=== PATIENT | female | born 1935 | race Caucasian/White ===

== ENCOUNTER 2017-06-18 13:34 | Inpatient (IN) | payer MEDICARE, OTHER ==
[~2017-06-18] VITALS: Ht 144.8 cm; Wt 52.2 kg
[2017-06-18 13:41] VITALS: BP 129/59; PULSE 119; RESP 16; TEMP 97.5
--- NOTE | 2017-06-18 14:14 | PD ---
HPI Chief Complaint: Medical Clearance Time Seen by Provider: 14:09 Travel History International Travel<30 days: No Contact w/Intl Traveler<30days: No Traveled to known affect area: No History of Present Illness HPI 81-year-old female assisted care patient with history of diabetes, currently on Coumadin, presents to the ER today brought in by her son, apparently has had a few recent falls, and her son noted that she has been more lethargic and disoriented and less active the last few days. She has no specific complaints. Son has also noted that she has a left facial droop. He has brought her in for further evaluation. He also thinks that she has not been eating in the last few days as well. Modifying Factors: None Associated Signs & Symptoms: Altered mental status, facial droop, decreased by mouth intake Risk Factors: Elderly, recent falls, on Coumadin PFSH Past Medical History ?: Not Social History Alcohol Use: No Tobacco Use: No Substance Use: No Allergies-Medications (Allergen,Severity, Reaction): Coded Allergies: Penicillins (Verified Allergy, Unknown, 06/18/17) Review of Systems ROS Limitations: Altered Mental Status Physical Exam Narrative GENERAL: Well-developed elderly white female patient currently in mild distress. Lethargic. SKIN: Focused skin assessment warm/dry. HEAD: Atraumatic. Normocephalic. EYES: Right pupil equal and round. No scleral icterus. No injection or drainage. Left-sided glass eye. ENT: No nasal bleeding or discharge. Mucous membranes dry. NECK: Trachea midline. No JVD. CARDIOVASCULAR: Regular rate and rhythm. No murmur appreciated. RESPIRATORY: No accessory muscle use. Decreased throughout. Breath sounds equal bilaterally. GASTROINTESTINAL: Abdomen soft, mild diffuse upper abdominal tenderness without guarding or rebound, nondistended. Hepatic and splenic margins not palpable. MUSCULOSKELETAL: No obvious deformities. No clubbing. No cyanosis. No edema. NEUROLOGICAL: Lethargic. Notable for mild left facial droop. Generally weak. Normal speech. PSYCHIATRIC: Lethargic, disoriented; insight and judgment poor. Data Data Last Documented VS Vital Signs Date Time Temp Pulse Resp B/P (MAP) Pulse Ox O2 Delivery O2 Flow Rate FiO2 06/18/17 16:03 103 18 156/72 (100) 97 Room Air 06/18/17 13:41 97.5 Orders Orders Electrocardiogram (06/18/17 14:03) Complete Blood Count With Diff (06/18/17 14:03) Comprehensive Metabolic Panel (06/18/17 14:03) Beta Hydroxybutyrate (Acetone) (06/18/17 14:03) Urinalysis - C+S If Indicated (06/18/17 14:03) Blood Culture (06/18/17 14:03) Chest, Single Ap (06/18/17 14:03) Ecg Monitoring (06/18/17 14:03) Iv Access Insert/Monitor (06/18/17 14:03) Oximetry (06/18/17 14:03) NPO (06/18/17 14:03) Troponin I (06/18/17 14:03) Ct Brain W/O Iv Contrast(Rout) (06/18/17 14:03) Prothrombin Time / Inr (Pt) (06/18/17 14:10) Act Partial Throm Time (Ptt) (06/18/17 14:10) Ct Thorax/ Chest Wo Iv Contras (06/18/17 14:40) Ct Abd/Pel W/O Iv Contrast (06/18/17 15:54) Sodium Chlor 0.9% 1000 Ml Inj (Ns 1000 M (06/18/17 16:30) Insulin Human Regular Inj (Novolin R Inj (06/18/17 16:30) Cefepime Inj (Maxipime Inj) (06/18/17 16:16) Admit Order (Ed Use Only) (06/18/17 16:18) Bedside Glucose . DIRECTED (06/18/17 16:18) Blood Glucose Goal (Criteria) (06/18/17 16:18) Hypoglycemia 70 Mg/Dl Or < (06/18/17 16:18) Notify Dr: Other (06/18/17 16:18) Dextrose 50% In Vero (Vial) Inj (D50w (Vi (06/18/17 16:30) Glucagon Inj (Glucagon Inj) (06/18/17 16:30) Medium Novolog Scale (06/18/17 17:00) Admit To Inpatient (06/18/17 ) Vital Signs (Adult) Q4H (06/18/17 16:18) Activity Oob With Assistance (06/18/17 16:18) Sprinkler Inspector / Telemetry .CONTINUOUS (06/18/17 16:18) Intake + Output VÍCTOR.QSHIFT (06/18/17 16:18) Diet Npo (06/18/17 Dinner) Sodium Chlor 0.9% 1000 Ml Inj (Ns 1000 M (06/18/17 16:18) Sodium Chloride 0.9% Flush (Ns Flush) (06/18/17 16:30) Sodium Chloride 0.9% Flush (Ns Flush) (06/18/17 21:00) Ondansetron Inj (Zofran Inj) (06/18/17 16:30) Scd Bilateral/Knee High VÍCTOR.BID (06/18/17 16:18) Naloxone Inj (Narcan Inj) (06/18/17 16:30) Docusate Sodium-Senna ([place]ugenia-Colace) (06/18/17 21:00) Magnesium Hydroxide Liq (Milk Of Magnesi (06/18/17 16:30) Sennosides (Senokot) (06/18/17 16:30) Bisacodyl Supp (Dulcolax Supp) (06/18/17 16:30) Lactulose Liq (Lactulose Liq) (06/18/17 16:30) Inpatient Certification (06/18/17 ) Labs Laboratory Tests Test 06/18/17 14:10 06/18/17 14:40 White Blood Count 25.6 TH/MM3 Red Blood Count 4.67 MIL/MM3 Hemoglobin 14.3 GM/DL Hematocrit 44.1 % Mean Corpuscular Volume 94.6 FL Mean Corpuscular Hemoglobin 30.6 PG Mean Corpuscular Hemoglobin Concent 32.4 % Red Cell Distribution Width 14.5 % Platelet Count 97 TH/MM3 Mean Platelet Volume 9.5 FL Neutrophils (%) (Auto) 89.5 % Lymphocytes (%) (Auto) 3.3 % Monocytes (%) (Auto) 7.1 % Eosinophils (%) (Auto) 0.1 % Basophils (%) (Auto) 0.0 % Neutrophils # (Auto) 23.0 TH/MM3 Lymphocytes # (Auto) 0.9 TH/MM3 Monocytes # (Auto) 1.8 TH/MM3 Eosinophils # (Auto) 0.0 TH/MM3 Basophils # (Auto) 0.0 TH/MM3 CBC Comment AUTO DIFF Differential Total Cells Counted 100 Neutrophils % (Manual) 91 % Band Neutrophils % 3 % Lymphocytes % 1 % Monocytes % 3 % Neutrophils # (Manual) 24.6 TH/MM3 Metamyelocytes 1 % Myelocytes 1 % Nucleated Red Blood Cells 1 /100 WBC Differential Comment FINAL DIFF MANUAL Toxic Vacuolation PRESENT Platelet Estimate LOW Platelet Morphology Comment NORMAL Red Cell Morphology Comment NORMAL Blood Urea Nitrogen 50 MG/DL Creatinine 1.68 MG/DL Random Glucose 626 MG/DL Total Protein 7.0 GM/DL Albumin 3.3 GM/DL Calcium Level 12.4 MG/DL Alkaline Phosphatase 1088 U/L Aspartate Amino Transf (AST/SGOT) 176 U/L Alanine Aminotransferase (ALT/SGPT) 151 U/L Total Bilirubin 3.7 MG/DL Sodium Level 133 MEQ/L Potassium Level 4.8 MEQ/L Chloride Level 99 MEQ/L Carbon Dioxide Level 22.9 MEQ/L Anion Gap 11 MEQ/L Estimat Glomerular Filtration Rate 29 ML/MIN Protein Corrected Calcium 12.6 MG/DL Troponin I 0.03 NG/ML B-Hydroxybutyrate 1.00 MMOL/L Prothrombin Time 13.7 SEC Prothromb Time International Ratio 1.2 RATIO Activated Partial Thromboplast Time 22.4 SEC MDM Medical Decision Making Medical Screen Exam Complete: Yes Emergency Medical Condition: Yes Medical Record Reviewed: Yes Interpretation(s) EKG shows sinus tachycardia rate of 100 bpm. No signs of acute ST-T elevations or depressions. Laboratory Tests Test 06/18/17 14:10 06/18/17 14:40 White Blood Count 25.6 TH/MM3 (4.0-11.0) Platelet Count 97 TH/MM3 (150-450) Neutrophils (%) (Auto) 89.5 % (16.0-70.0) Lymphocytes (%) (Auto) 3.3 % (9.0-44.0) Neutrophils # (Auto) 23.0 TH/MM3 (1.8-7.7) Lymphocytes # (Auto) 0.9 TH/MM3 (1.0-4.8) Monocytes # (Auto) 1.8 TH/MM3 (0-0.9) Neutrophils % (Manual) 91 % (16-70) Lymphocytes % 1 % (9-44) Neutrophils # (Manual) 24.6 TH/MM3 (1.8-7.7) Myelocytes 1 % (0-0) Nucleated Red Blood Cells 1 /100 WBC (0-0) Toxic Vacuolation PRESENT (NONE SEEN) Platelet Estimate LOW (NORMAL) Blood Urea Nitrogen 50 MG/DL (7-18) Creatinine 1.68 MG/DL (0.50-1.00) Random Glucose 626 MG/DL (74-106) Albumin 3.3 GM/DL (3.4-5.0) Calcium Level 12.4 MG/DL (8.5-10.1) Alkaline Phosphatase 1088 U/L (45-117) Aspartate Amino Transf (AST/SGOT) 176 U/L (15-37) Alanine Aminotransferase (ALT/SGPT) 151 U/L (10-53) Total Bilirubin 3.7 MG/DL (0.2-1.0) Sodium Level 133 MEQ/L (136-145) Estimat Glomerular Filtration Rate 29 ML/MIN (>89) Protein Corrected Calcium 12.6 MG/DL (8.5-10.1) B-Hydroxybutyrate 1.00 MMOL/L (0.00-0.39) Prothrombin Time 13.7 SEC (9.8-11.6) Activated Partial Thromboplast Time 22.4 SEC (24.3-30.1) Last [address] 06/18/17 1403 Signed Impressions: Service Date/Time: Sunday, June 18, 2017 14:21 - CONCLUSION: 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 No evidence of hemorrhage or edema. No mass or mass effect. Jose Barry MD Chest X-Ray 06/18/17 1403 Signed Impressions: Service Date/Time: Sunday, June 18, 2017 14:19 - CONCLUSION: Soft tissue mass in the AP window and left hilum. Outpatient contrasted chest CT is recommended. Jose Barry MD Differential Diagnosis Altered mental status, left facial droop: ICH versus CVA versus metabolic issues versus dehydration versus sepsis Narrative Course CAT scan shows an old stroke but no signs of acute strokes. Her lab work shows significant BUN and creatinine elevation and calcium elevation, concerning for severe dehydration or acute renal failure. Her liver enzymes elevated from unknown reasons. Her chest x-ray shows a pulmonary mass which she needs further evaluation. CAT scans of the chest and abdomen were ordered, without contrast because patient's kidney functions are not good enough. At this point , considering her symptoms and findings, my plan would be to admit her for further treatment and evaluation. Case is discussed with Dr. Irby for admission. Diagnosis Primary Impression: Altered mental status Additional Impressions: Acute renal failure Elevated liver enzymes Admitting Information Admitting Physician Requests: Admit Sofia Coppola MD Jun 18, 2017 14:14
[2017-06-18 14:22] VITALS: O2SAT 95
--- NOTE | 2017-06-18 14:38 | RADRPT ---
EXAM DATE/TIME: 06/18/2017 14:19 [facility] COMPARISON: No previous studies available for comparison. INDICATIONS : Chest pain since this morning. MEDICAL HISTORY : None. SURGICAL HISTORY : None. ENCOUNTER: Initial ACUITY: 1 day PAIN SCORE: 7/10 LOCATION: Bilateral chest FINDINGS: A single view of the chest demonstrates definite soft tissue prominence in the left hilum. Adenopathy versus left hilar mass. Contrasted chest CT is recommended on an outpatient basis. Osseous structur es are intact. CONCLUSION: Soft tissue mass in the AP window and left hilum. Outpatient contrasted chest CT is recommended. Jose Barry MD on June 18, 2017 at 14:35 Board Certified Radiologist. This report was verified electronically.
--- NOTE | 2017-06-18 15:00 | RADRPT ---
EXAM DATE/TIME: 06/18/2017 14:21 [facility] COMPARISON: No previous studies available for comparison. INDICATIONS : Altered mental status,frequent falls,weakness.left facial droop. RADIATION DOSE: 56.77 CTDIvol (mGy) MEDICAL HISTORY : Deep venous thrombosis. Diabetes SURGICAL HISTORY : None. ENCOUNTER: Initial ACUITY: 1 day PAIN SCALE: 0/10 LOCATION: cranial TECHNIQUE: Multiple contiguous axial images were obtained of the head. Using automated exposure control and adj ustment of the mA and/or kV according to patient size, radiation dose was kept as low as reasonably a chievable to obtain optimal diagnostic quality images. DICOM format image data is available electro nically for review and comparison. FINDINGS: CEREBRUM: There is no lacunar infarct on the right with some areas of encephalomalacia in the high right fronta l region. The ventricles are normal for age. No evidence of midline shift, mass lesion, hemorrhage o r acute infarction. No extra-axial fluid collections are seen. POSTERIOR FOSSA: The cerebellum and brainstem are intact. The 4th ventricle is midline. The cerebellopontine angle i s unremarkable. EXTRACRANIAL: Calcified left globe. SKULL: The calvaria is intact. No evidence of skull fracture. 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 No evidence of hemorrhage or edema. No mass or mass effect. Jose Barry MD on June 18, 2017 at 14:57 Board Certified Radiologist. This report was verified electronically.
[2017-06-18 15:10] LABS: EOSINOPHIL % 0.1 % (0.0-4.0); HEMATOCRIT 44.1 % (35.0-46.0); LYMPH % 3.3 % (9.0-44.0); LYMPHOCYTE # 0.9 TH/MM3 (1.0-4.8); MEAN CELL VOLUME 94.6 FL (80.0-100.0); MEAN CORPUSCULAR HEMOGLOBIN 30.6 PG (27.0-34.0); MEAN CORPUSCULAR HGB CONC 32.4 % (32.0-36.0); MONO % 7.1 % (0.0-8.0); NEUT % 89.5 % (16.0-70.0); PLATELET COUNT 97 TH/MM3 (150-450); RED BLOOD COUNT 4.67 MIL/MM3 (4.00-5.30); RED CELL DISTRIBUTION WIDTH 14.5 % (11.6-17.2); WHITE BLOOD COUNT 25.6 TH/MM3 (4.0-11.0)
[2017-06-18 15:16] LABS: HEMO FLAGS AUTO DIFF
[2017-06-18 15:22] LABS: APTT (PATIENT) 22.4 SEC (24.3-30.1); INTERNATIONAL NORMALIZED RATIO 1.2 RATIO; PROTHROMBIN TIME - PATIENT 13.7 SEC (9.8-11.6)
[2017-06-18 15:41] LABS: BANDS 3 % (0-6); CORRECTED NUCLEATED RBC 1 /100 WBC (0-0); METAMYELOCYTES 1 % (0-1); MYELOCYTES 1 % (0-0); NEUTROPHIL # MANUAL DIFF 24.6 TH/MM3 (1.8-7.7); POLYS (SEG NEUTROPHILS) 91 % (16-70); WBC DIFF SAMPLE 100
[2017-06-18 15:42] LABS: SCAN/DIFF FINAL DIFF MANUAL
[2017-06-18 15:43] LABS: TOXIC VACUOLATION PRESENT (NONE SEEN)
[2017-06-18 15:44] LABS: BICARBONATE 22.9 MEQ/L (21.0-32.0); PLATELET ESTIMATE SMEAR LOW (NORMAL); PLATELET MORPHOLOGY NORMAL (NORMAL); TOTAL BILIRUBIN ADULT 3.7 MG/DL (0.2-1.0)
[2017-06-18 15:47] LABS: POTASSIUM 4.8 MEQ/L (3.5-5.1)
[2017-06-18 15:51] LABS: CALCIUM-PROTEIN CORRECTED 12.6 MG/DL (8.5-10.1)
[2017-06-18 16:03] VITALS: BP 156/72; PULSE 103; RESP 18; O2SAT 97
[2017-06-18] MEDS ORDERED: CEFEPIME INJ 2,000 MG in SODIUM CHLORIDE 0.9% INJ 100 ML IV STA (16:16)
[2017-06-18] MEDS ORDERED: ONDANSETRON HCL 4 MG/2 ML VIAL IVP PRN (16:30)
[2017-06-18] MEDS ORDERED: BISACODYL 10 MG SUPP RECTAL PRN (16:30)
[2017-06-18] MEDS ORDERED: GLUCAGON 1 MG/ML VIAL OTHER PRN (16:30)
[2017-06-18] MEDS ORDERED: SODIUM CHLOR 0.9% 1000 ML INJ 1,000 ML IV ONE (16:30)
[2017-06-18] MEDS ORDERED: SENNOSIDES 8.6 MG TAB PO PRN (16:30)
[2017-06-18] MEDS ORDERED: MAGNESIUM HYDROXIDE SUSP 30 ML CUP PO PRN (16:30)
[2017-06-18] MEDS ORDERED: DEXTROSE 50% IN WATER 50 ML VIAL(D50) IV PUSH PRN (16:30)
[2017-06-18] MEDS ORDERED: SODIUM CHLORIDE 0.9% FLUSH 10 ML FLUSH IV FLUSH PRN (16:30)
[2017-06-18] MEDS ORDERED: INSULIN HUMAN REGULAR 1,000 UNITS/10 ML VIAL IV PUSH ONE (16:30)
[2017-06-18] MEDS ORDERED: LACTULOSE SYRUP 20 GM/30 ML CUP PO PRN (16:30)
[2017-06-18] MEDS ORDERED: NALOXONE HCL 0.4 MG/ML AMP IV PUSH PRN (16:30)
[2017-06-18] MEDS: INSULIN ASPART SUPPLEMENTAL SCALE SQ SCH ×2 (17:00→21:00)
[2017-06-18] MEDS ORDERED: PILO2SOL3 RIGHT EYE (17:01)
[2017-06-18] MEDS ORDERED: METF500T PO (17:01)
[2017-06-18] MEDS ORDERED: COUM3TAB PO (17:01)
[2017-06-18] MEDS ORDERED: GLIP10TA6 PO (17:01)
[2017-06-18] MEDS ORDERED: DORZ2SOL7 RIGHT EYE (17:01)
[2017-06-18] MEDS ORDERED: BENZ1CAP51 PO (17:01)
[2017-06-18] MEDS ORDERED: ALPH0.1S RIGHT EYE (17:01)
[2017-06-18] MEDS ORDERED: SIMV20TA PO (17:01)
[2017-06-18] MEDS ORDERED: SYSTSOL EACH EYE (17:01)
[2017-06-18] MEDS ORDERED: AMLO10TA2 PO (17:01)
--- NOTE | 2017-06-18 17:26 | RADRPT ---
EXAM DATE/TIME: 06/18/2017 16:26 [facility] COMPARISON: No previous studies available for comparison. INDICATIONS : Right hilum mass seen on chest x-ray. ORAL CONTRAST: No oral contrast ingested. RADIATION DOSE: 5.87 CTDIvol (mGy) ; Combined studies - Thorax/Abdomen/Pelvis MEDICAL HISTORY : None SURGICAL HISTORY : None. ENCOUNTER: Initial ACUITY: 1 day PAIN SCALE: Non-responsive LOCATION: Abdomen TECHNIQUE: Volumetric scanning of the abdomen and pelvis was performed. Using automated exposure control and adjustment of the mA and/or kV according to patient size, radiation dose was kept as low as reasonably achievable to obtain optimal diagnostic quality images. DICOM format image data is av ailable electronically for review and comparison. FINDINGS: Noncontrast CT scan of the abdomen and pelvis demonstrates there is a large mass in the dome of the bladder. It is transitional cell carcinoma until proven otherwise. That would account for the metastatic disease to the chest. The liver is very inhomogeneous I suspect with widespread metastatic disease. There is atrophy of the pancreas. The kidneys are unremarkable. Spleen and adrenal glands are both u nremarkable. Clips suggest cholecystectomy. CONCLUSION: Very inhomogeneous liver with what appears to be multiple masses on this unenhanced s tudy. I suspect it is widespread metastatic disease. Marked bladder wall thickening of the dome lik nisa transitional cell carcinoma. Jose Barry MD on June 18, 2017 at 17:07 Board Certified Radiologist. This report was verified electronically.
--- NOTE | 2017-06-18 17:32 | RADRPT ---
EXAM DATE/TIME: 06/18/2017 16:26 [facility] COMPARISON: No previous studies available for comparison. INDICATIONS : Chest mass. RADIATION DOSE: 5.87 CTDIvol (mGy) ; Combined studies - Thorax/Abdomen/Pelvis MEDICAL HISTORY : None SURGICAL HISTORY : None. ENCOUNTER: Initial ACUITY: 1 day PAIN SCALE: Non-responsive LOCATION: Chest TECHNIQUE: Volumetric scanning of the chest was performed. Using automated exposure control and adjustment of t he mA and/or kV according to patient size, radiation dose was kept as low as reasonably achievable to obtain optimal diagnostic quality images. DICOM format image data is available electronically for r eview and comparison. Follow-up recommendations for detected pulmonary nodules are based at a minimum on nodule size and pa tient risk factors according to Fleischner Society Guidelines. FINDINGS: Noncontrast chest CT was performed. The patient has a very enlarged left pulmonary artery which neela esponds with the chest x-ray abnormality. I suspect the patient has pulmonary valve stenosis with un ilateral enlargement of the left pulmonary artery. The right pulmonary artery is normal. The patient does have a number of pulmonary nodules scattered throughout the lungs. There is an 8 mm pulmonary nodule in the left upper lobe. There is a 1 cm pulmonary nodule in the right middle lobe. There are at least four subcentimeter pulmonary nodules in the left lung base. It is very concernin g for metastatic disease. There is no axillary adenopathy. Bone windows show no lytic or blastic lesions. There are dense pericardial calcifications. CONCLUSION: 1. 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 2. Numerous small pulmonary nodules scattered throughout the lungs likely metastatic disease. The no dule in the right middle lobe does abut the visceral pleura and would be amenable to CT-guided biopsy if needed. Jose Barry MD on June 18, 2017 at 17:06 Board Certified Radiologist. This report was verified electronically.
[2017-06-18] MEDS: SODIUM CHLOR 0.9% 1000 ML INJ 1,000 ML IV SCH (18:19)
--- NOTE | 2017-06-18 18:36 | HHI.HP ---
[facility] Primary Care Physician Todd Daniels MD Admission Diagnosis altered mental status/acute renal failure/hypercalcemia/elevated LFT Diagnoses: Chief Complaint: Altered mental status Travel History International Travel<30 Days: No Contact w/Intl Traveler <30 Da: No Traveled to Known Affected Are: No History of Present Illness This is an 81-year-old female with past medical history of type 2 diabetes, hx right-sided stroke, hypertension, hyperlipidemia, hearing loss and on chronic anticoagulation who presented with confusion. Majority of the history taken from her son who is at the bedside. Patient is AAO 2. She is able to tell me her name and location. She is also able to answer questions appropriately. Patient stated that she does not know why she is here. She has no complaints at all. Denied any pain. Per patient's son the last few weeks patient has been falling. Per patient she stated that she is tripping over things. Today when patient son called her around lunchtime she was very confused so he brought her to the emergency department. He noticed that she was becoming intermittently confused the past couple days but it was severe today. Otherwise he stated besides the fall she has been behaving normally. He did admit that patient felt nauseated or had upset stomach about 2 weeks ago that resolved. Patient denies any urinary symptoms. Patient lives at home independently. All other review of system reviewed and negative. Past Family Social History Past Medical History Type 2 diabetes Glaucoma Hypertension History right CVA Hyperlipidemia Difficulty hearing Past Surgical History Patient denies any past surgical history. Her son is unsure if she has any past surgical history. Reported Medications Coumadin (Warfarin) 3 Mg Tab 3 Mg PO DAILY Amlodipine (Amlodipine Besylate) 10 Mg Tab 10 Mg PO DAILY Benzonatate 200 Mg Cap 200 Mg PO TID PRN Pilocarpine Opth 2% (Pilocarpine HCl) 2 % Soln 1 Drop RIGHT EYE Q6HR Metformin (Metformin HCl) 500 Mg Tab 500 Mg PO BIDPC Simvastatin 20 Mg Tab 20 Mg PO DAILY Glipizide 10 Mg Tab 10 Mg PO BIDAC Take 30 minutes before a meal Cosopt Opth Drops (Dorzolamide-Timolol Opth Drops) 22.3-6.8 Mg/Ml Soln 1 Drop RIGHT EYE BID Alphagan P Opth Drops (Brimonidine Tartrate) 0.1% Soln 1 Drop RIGHT EYE Q8HR Systane Opth Drops (Polyethylene Glycol-Propylene Glycol Opth Drp) 0.4-0.3% Soln 1-2 Drop EACH EYE PRN PRN Allergies: Coded Allergies: Penicillins (Verified Allergy, Unknown, 06/18/17) Active Ordered Medications Current Medications Sodium Chloride 1,000 ml @ 999 mls/hr BOLUS ONCE IV Last administered on 16:53; Start 06/18/17 at 16:30; Stop 06/18/17 at 17:27; Status DC Insulin Human Regular (NovoLIN R INJ) 6 units ONCE ONCE IV PUSH Last administered on 06/18/17 16:53; Start 06/18/17 at 16:30; Stop 06/18/17 at 16 :31; Status DC Cefepime HCl 2000 mg/Sodium Chloride 100 ml @ 200 mls/hr ONCE STAT IV Last administered on 06/18/17 16:52; Start 06/18/17 at 16:16; Stop 06/18/17 at 16 :45; Status DC Dextrose (D50w (Vial) Inj) 50 ml UNSCH PRN IV PUSH HYPOGLYCEMIA-SEE COMMENTS; Start 06/18/17 at 16:30 Glucagon (Glucagon Inj) 1 mg UNSCH PRN OTHER HYPOGLYCEMIA-SEE COMMENTS; Start 06/18/17 at 16:30 Insulin Aspart (NovoLOG SUPPLEMENTAL SCALE) 1 ACHS SLIDING SCALE SQ ; Start at 17:00 Sodium Chloride 1,000 ml @ 100 mls/hr Q10H IV ; Start 06/18/17 at 16:18 Sodium Chloride (NS Flush) 2 ml UNSCH PRN IV FLUSH FLUSH AFTER USING IV ACCESS ; Start 06/18/17 at 16:30 Sodium Chloride (NS Flush) 2 ml BID IV FLUSH ; Start 06/18/17 at 21:00 Ondansetron HCl (Zofran Inj) 4 mg Q6H PRN IVP NAUSEA OR VOMITING; Start at 16:30 Naloxone HCl (Narcan Inj) 0.4 mg UNSCH PRN IV PUSH SEE LABEL COMMENTS; Start 06/18/17 at 16:30 Senna/Docusate Sodium (Eugenia-Colace) 1 tab BID PO ; Start 06/18/17 at 21:00 Magnesium Hydroxide (Milk Of Magnesia Liq) 30 ml Q12H PRN PO Mild constipation ; Start 06/18/17 at 16:30 Sennosides (Senokot) 17.2 mg Q12H PRN PO Moderate constipation; Start at 16:30 Bisacodyl (Dulcolax Supp) 10 mg DAILY PRN RECTAL SEVERE CONSITIPATION; Start 06/18/17 at 16:30 Lactulose (Lactulose Liq) 30 ml DAILY PRN PO SEVERE CONSITIPATION; Start 06/18 at 16:30 Ceftriaxone Sodium 1000 mg/ Sodium Chloride 100 ml @ 200 mls/hr Q24H IV ; Start 06/19/17 at 12:00 Amlodipine Besylate (Norvasc) 10 mg DAILY PO ; Start 06/19/17 at 09:00; Status UNV Dorzolamide/ Timolol (Cosopt 2-0.5% Opth Soln) 1 drop BID RIGHT EYE ; Start at 21:00; Status UNV Pilocarpine HCl (Pilocar 2% Opth Soln) 1 drop Q6HR RIGHT EYE ; Start 06/19/17 at 00:00; Status UNV Non-Formulary Medication 1 drop Q8HR RIGHT EYE ; Start 06/18/17 at 22:00; Status UNV Family History Patient denies any past family history. Son is unsure of any past family history. Social History Patient was at home by herself. She denied any alcohol, tobacco, illicit drug use. Physical Exam Vital Signs Vital Signs Date Time Temp Pulse Resp B/P (MAP) Pulse Ox O2 Delivery O2 Flow Rate FiO2 06/18/17 16:03 103 18 156/72 (100) 97 Room Air 06/18/17 14:22 95 Room Air 06/18/17 13:41 97.5 119 16 129/59 (82) Physical Exam GENERAL: This is a very thin female in no acute distress. SKIN: No rashes, ecchymoses or lesions. Cool and dry. HEAD: Atraumatic. Normocephalic. No temporal or scalp tenderness. EYES: Pupils equal round and reactive. Extraocular motions intact. No scleral icterus. No injection or drainage. ENT: Nose without bleeding, purulent drainage or septal hematoma. Throat without erythema, tonsillar hypertrophy or exudate. Uvula midline. Airway patent. NECK: Trachea midline. No JVD or lymphadenopathy. Supple, nontender, no meningeal signs. CARDIOVASCULAR: Regular rate and rhythm without murmurs, gallops, or rubs. RESPIRATORY: Clear to auscultation. Breath sounds equal bilaterally. No wheezes , rales, or rhonchi. GASTROINTESTINAL: Abdomen soft, non-tender, nondistended. No hepato-splenomegaly , or palpable masses. No guarding. MUSCULOSKELETAL: Extremities without clubbing, cyanosis, or edema. No joint tenderness, effusion, or edema noted. No calf tenderness. Negative Homans sign bilaterally. NEUROLOGICAL: Awake and alert. Slight left facial droop that's normal for her. Motor and sensory grossly within normal limits. Speech is intact. Laboratory Laboratory Tests Test 06/18/17 14:10 06/18/17 14:40 White Blood Count 25.6 Red Blood Count 4.67 Hemoglobin 14.3 Hematocrit 44.1 Mean Corpuscular Volume 94.6 Mean Corpuscular Hemoglobin 30.6 Mean Corpuscular Hemoglobin Concent 32.4 Red Cell Distribution Width 14.5 Platelet Count 97 Mean Platelet Volume 9.5 Neutrophils (%) (Auto) 89.5 Lymphocytes (%) (Auto) 3.3 Monocytes (%) (Auto) 7.1 Eosinophils (%) (Auto) 0.1 Basophils (%) (Auto) 0.0 Neutrophils # (Auto) 23.0 Lymphocytes # (Auto) 0.9 Monocytes # (Auto) 1.8 Eosinophils # (Auto) 0.0 Basophils # (Auto) 0.0 CBC Comment AUTO DIFF Differential Total Cells Counted 100 Neutrophils % (Manual) 91 Band Neutrophils % 3 Lymphocytes % 1 Monocytes % 3 Neutrophils # (Manual) 24.6 Metamyelocytes 1 Myelocytes 1 Nucleated Red Blood Cells 1 Differential Comment FINAL DIFF MANUAL Toxic Vacuolation PRESENT Platelet Estimate LOW Platelet Morphology Comment NORMAL Red Cell Morphology Comment NORMAL Blood Urea Nitrogen 50 Creatinine 1.68 Random Glucose 626 Total Protein 7.0 Albumin 3.3 Calcium Level 12.4 Alkaline Phosphatase 1088 Aspartate Amino Transf (AST/SGOT) 176 Alanine Aminotransferase (ALT/SGPT) 151 Total Bilirubin 3.7 Sodium Level 133 Potassium Level 4.8 Chloride Level 99 Carbon Dioxide Level 22.9 Anion Gap 11 Estimat Glomerular Filtration Rate 29 Protein Corrected Calcium 12.6 Troponin I 0.03 B-Hydroxybutyrate 1.00 Prothrombin Time 13.7 Prothromb Time International Ratio 1.2 Activated Partial Thromboplast Time 22.4 Date/Time Source Procedure Growth Status 06/18/17 14:10 Blood Peripheral Aerobic Blood Culture Pending Received 06/18/17 14:10 Blood Peripheral Anaerobic Blood Culture Pending Received Result Diagram: 06/18/17 1410 06/18/17 1410 Imaging Last Impressions Abdomen/Pelvis CT 06/18/17 1554 Signed Impressions: Service Date/Time: Sunday, June 18, 2017 16:26 - CONCLUSION: Very inhomogeneous liver with what appears to be multiple masses on this unenhanced study. I suspect it is widespread metastatic disease. 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 Jose Barry MD Chest CT 06/18/17 1440 Signed Impressions: Service Date/Time: Sunday, June 18, 2017 16:26 - CONCLUSION: 1. 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 2. Numerous small pulmonary nodules scattered throughout the lungs likely metastatic disease. The nodule in the right middle lobe does abut the visceral pleura and would be amenable to CT-guided biopsy if needed. Jose Barry MD Head CT 06/18/17 1403 Signed Impressions: Service Date/Time: Sunday, June 18, 2017 14:21 - CONCLUSION: 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 No evidence of hemorrhage or edema. No mass or mass effect. Jose Barry MD Chest X-Ray 06/18/17 1403 Signed Impressions: Service Date/Time: Sunday, June 18, 2017 14:19 - CONCLUSION: Soft tissue mass in the AP window and left hilum. Outpatient contrasted chest CT is recommended. MD Beulah Marie VTE Risk Assessment Caprini VTE Risk Assessment: Mod/High Risk (score >= 2) Caprini Risk Assessment Model Point Value = 1 Point Value = 2 Point Value = 3 Point Value = 5 Age 41-60 Minor surgery BMI > 25 kg/m2 Swollen legs Varicose veins or History of unexplained or recurrent spontaneous Oral contraceptives or hormone replacement Sepsis (< 1 month) Serious lung disease, including pneumonia (< 1 month) Abnormal pulmonary function Acute myocardial infarction Congestive heart failure (< 1 month) History of inflammatory bowel disease Medical patient at bed rest Age 61-74 Arthroscopic surgery Major open surgery (> 45 min) Laparoscopic surgery (> 45 min) Malignancy Confined to bed (> 72 hours) Immobilizing plaster cast Central venous access Age >= 75 History of VTE Family history of VTE Factor V Leiden Prothrombin [id number] Lupus anticoagulant Anticardiolipin antibodies Elevated serum homocysteine Heparin-induced thrombocytopenia Other congenital or acquired thrombophilia Stroke (< 1 month) Elective arthroplasty Hip, pelvis, or leg fracture Acute spinal cord injury (< 1 month) Prophylaxis Regimen Total Risk Factor Score Risk Level Prophylaxis Regimen 0-1 Low Early ambulation 2 Moderate Order ONE of the following: *Sequential Compression Device (SCD) *Heparin 5000 units SQ BID 3-4 Higher Order ONE of the following medications: *Heparin 5000 units SQ TID *Enoxaparin/Lovenox 40 mg SQ daily (WT < 150 kg, CrCl > 30 mL/min) *Enoxaparin/Lovenox 30 mg SQ daily (WT < 150 kg, CrCl > 10-29 mL/min) *Enoxaparin/Lovenox 30 mg SQ BID (WT < 150 kg, CrCl > 30 mL/min) AND/OR *Sequential Compression Device (SCD) 5 or more Highest Order ONE of the following medications: *Heparin 5000 units SQ TID (Preferred with Epidurals) *Enoxaparin/Lovenox 40 mg SQ daily (WT < 150 kg, CrCl > 30 mL/min) *Enoxaparin/Lovenox 30 mg SQ daily (WT < 150 kg, CrCl > 10-29 mL/min) *Enoxaparin/Lovenox 30 mg SQ BID (WT < 150 kg, CrCl > 30 mL/min) AND *Sequential Compression Device (SCD) Assessment and Plan Assessment and Plan 81-year-old female who became in with confusion Metabolic encephalopathy -Labs review significant for hypoglycemia, renal insufficiency, hypercalcemia, leukocytosis. Most likely may be due to combination of dehydration. -CT scan the brain shows an old right infarct. -Will treat underlying problem. Seems to be improving at the moment. Continue to monitor clinically. Sepsis vs SIRS -Elevated white count at 25,000 and tachycardia. Source may be secondary to UTI. -Will obtain UA. Chest x-ray showed pulmonary mass. -Blood cultures already obtained in the ED. Will get a lactic acid. -Patient was given cefepime in the ED. Will start Rocephin pending infectious workup. -Start IV fluids. -Continue to monitor clinically. Multiple pulmonary and liver nodules -Found on CT scan. Also bladder wall thickening was suggest transitional cell carcinoma. -Per CT scan there is a pulmonary and nodule that is amenable to CT percutaneous guided biopsy. Will get recommendations from oncologist. Hypercalcemia -Calcium is at 12.6 corrected. -Most likely secondary to metastatic disease. -Will start patient on IV fluids. Continue to monitor. Elevated liver enzymes and alkaline phosphatase -CT scan suggest metastatic liver disease. -Most likely secondary to metastatic liver disease. Sees treatment as above. -Continue monitoring trend. Acute renal sufficiency -There is no baseline for comparison. BUN is elevated at 50 with a creatinine 1.6. With elevated BUN suggest possible dehydration. -Treat with IV fluids. -Strict ins and outs. -Avoid nephrotoxins. Continue to trend creatinine. HHS -Patient blood sugar elevated 600. No anion gap. She is in renal failure and is dehydrated. -Will treat aggressively with IV fluids and place patient on insulin sliding scale. -Hold metformin and glipizide. -Will monitor labs and adjust insulin accordingly. Chronic anticoagulation -Patient son is unsure why she is on Coumadin. Will need to hold for possible lung biopsy. -INR is 1.2. She is not therapeutic. Most likely patient was noncompliant. Hypertension -Resume home medication. Hyperlipidemia -Since LFTs elevated will hold statin. History CVA -Patient is not on aspirin. She was most likely on Coumadin due to history CVA but unsure. DVT prophylaxis -Heparin renally dose. Code Status full code Discussed Condition With patient, nurse, her son, her daughter in law Physician Certification 2 Midnight Certification Type: Admission for Inpatient Services Order for Inpatient Services The services are ordered in accordance with Medicare regulations or non- Medicare payer requirements, as applicable. In the case of services not specified as inpatient-only, they are appropriately provided as inpatient services in accordance with the 2-midnight benchmark. Estimated LOS (days): 5 5 days is the estimated time the patient will need to remain in the hospital, assuming treatment plan goals are met and no additional complications. Post-Hospital Plan: Deisy Adrian MD Jun 18, 2017 18:36
[2017-06-18 20:11] VITALS: PULSE 92
[2017-06-18 20:30] VITALS: BP 161/70; PULSE 102; RESP 17; TEMP 97.5; O2SAT 98
[2017-06-18] MEDS: INSULIN DETEMIR 100 UNITS/ML VIAL SQ SCH (21:00)
[2017-06-18] MEDS: SODIUM CHLORIDE 0.9% FLUSH 10 ML FLUSH IV FLUSH SCH (21:00)
[2017-06-18] MEDS ORDERED: BRIMONIDINE OPTH RIGHT EYE SCH (22:00)
[2017-06-18] MEDS: DOCUSATE SODIUM 50 MG/SENNA 8.6 MG TAB PO SCH (22:56)
[2017-06-18] MEDS: HEPARIN SODIUM - SQ 10,000 UNITS/ML VIAL SQ SCH (22:57)
[2017-06-19] VITALS (9 sets, daily range): BP systolic 140–185; BP diastolic 62–96; PULSE 80–106; RESP 17–20; TEMP 97.1–98.2; O2SAT 94–98
[2017-06-19] MEDS ORDERED: methylPREDNISolone SOD SUCC 40 MG/1 ML VIAL IV PUSH ONE (02:30)
[2017-06-19] MEDS ORDERED: CALCITONIN SALMON INJ 400 UNITS/2 ML VIAL IM ONE (02:30)
[2017-06-19] MEDS: DORZOLAMIDE/TIMOLOL OPTH SOLN 10 ML BTL RIGHT EYE SCH ×3 (04:36→20:21)
[2017-06-19] MEDS: PILOCARPINE HCL 2% OPHT SOLN 15 ML BTL RIGHT EYE SCH ×5 (04:36→23:21)
[2017-06-19] MEDS ORDERED: cloNIDine HCL 0.1 MG TAB PO ONE (04:45)
[2017-06-19 05:11] LABS: BACTERIA, URINE RARE /hpf; BLOOD, URINE MOD (NEG); COMMENT (UR) CATH-CULTURE IND; CULTURE IF INDICATED CATH CULTURE IND; GLUCOSE,URINE 150 mg/dL (NEG); HYALINE CAST, URINE 2 /lpf (RARE); KETONE, URINE NEG (NEG); MUCUS URINE FEW /lpf (OCC); NITRITE,URINE NEG (NEG); SQUAMOUS EPITHELIAL CELL URINE 8 /hpf (0-5); URINE COLOR YELLOW (YELLW/STRAW)
[2017-06-19] MEDS: SODIUM CHLOR 0.9% 1000 ML INJ 1,000 ML IV SCH ×3 (05:35→22:18)
[2017-06-19 07:03] LABS: MEAN CELL VOLUME 93.1 FL (80.0-100.0); MEAN CORPUSCULAR HEMOGLOBIN 30.9 PG (27.0-34.0); MEAN CORPUSCULAR HGB CONC 33.2 % (32.0-36.0); PLATELET COUNT 63 TH/MM3 (150-450); RED BLOOD COUNT 4.29 MIL/MM3 (4.00-5.30); RED CELL DISTRIBUTION WIDTH 14.4 % (11.6-17.2); WHITE BLOOD COUNT 24.5 TH/MM3 (4.0-11.0)
--- NOTE | 2017-06-19 07:06 | MB ---
cc: MICHAEL HILLS DATE OF CONSULTATION 06/18/2017 REASON FOR CONSULTATION Patient with metastatic lesions to the lung and abdomen. HISTORY OF PRESENT ILLNESS This is an 81-year-old female who has a past medical history of diabetes type 2, history of stroke, hypertension, hyperlipidemia, hearing loss who presents to the emergency department with acute episode of confusion. Her son is present during this evaluation. He states that the patient lives by herself. He went to see the patient around lunch time and she was found to be extremely confused and was not answering questions appropriately. He states that over the past week, the patient has been falling and has not been her usual self. He states that prior to that, the patient was functioning independently. The patient currently is quite confused. She is awake, but she does not respond to my questions and is giving inappropriate answers. The patient appears to be quite cachectic, frail and ill-appearing. REVIEW OF SYSTEMS A comprehensive 14-point review of systems was completed which is negative except as described in the HPI. PAST MEDICAL HISTORY 1. Type 2 diabetes 2. Glaucoma 3. Hypertension 4. History of right-sided CVA. 5. Hyperlipidemia 6. Hearing loss PAST SURGICAL HISTORY No surgical history. MEDICATIONS 1. Coumadin 3 mg p.o. daily 2. Amlodipine 10 mg p.o. daily 3. Tessalon Perles 200 mg p.o. t.i.d. p.r.n. 4. Pilocarpine right eye q6 5. Metformin 500 mg one tablet p.o. b.i.d. 6. Simvastatin 20 mg p.o. daily 7. Glipizide 10 mg p.o. b.i.d. ALLERGIES She is allergic to PENICILLIN. FAMILY HISTORY Reviewed and is noncontributory to this admission. SOCIAL HISTORY She lives by herself according to son. She does not smoke cigarettes and does not drink alcohol. History of illicit drug use. PHYSICAL EXAMINATION VITAL SIGNS: Blood pressure is 156/72, pulse is in the 100's, temperature is 97.5, O2 sats are 97% on room air. GENERAL: An ill-appearing, cachectic, frail elderly female who is confused and is not answering questions appropriately. HEENT: Pupils are equal, round, reactive to light. EOMI. No oral thrush. No oral lesions. NECK: Supple. No JVD, no bruits. No lymphadenopathy. CHEST: Clear to auscultation bilaterally. CARDIAC: S1-S2 regular rate and rhythm. ABDOMEN: Soft, nontender, nondistended. Bowel sounds are present. EXTREMITIES: Without any edema, erythema or cyanosis. SKIN: Without any petechiae, lesion or bruises. NEUROLOGIC: No focal deficits. PSYCHIATRIC: Mood and affect is appropriate. LABORATORY DATA WBC 25.6, hemoglobin is 14.3. Her platelet count 97,000. Sodium is 133, potassium 4.8, chloride 99, CO2 is 22.9, anion gap is 11, BUN is 50, creatinine is 1.68, GFR is 29, lactic acid is elevated to 5.3, calcium is 12.4, corrected calcium is 12.6, total bilirubin is 3.7, AST is 176, ALT 151, alk phos is 1088, troponins are normal. Albumin is 3.3. Coags PT 13.7, INR 1.2, PTT 22.4. IMAGING STUDIES CT of the abdomen and pelvis was reviewed. There are multiple liver masses in the liver consistent with metastatic disease. There is also marked bladder wall thickening of the dome. This is highly suspicious for malignancy. CT of the chest was also reviewed. There are numerous small pulmonary nodules scattered throughout the lung which are likely metastatic. The nodule in the right middle lobe appears to be unable to CT-guided biopsy. ASSESSMENT/PLAN This is an 81-year-old female with a past medical history of stroke, hypertension, and diabetes who was brought to the emergency room with altered mental status. She was found to be hypercalcemic and has multiple liver masses as well as lung masses. 1. Liver lesions and lung lesions are highly suspicious for metastatic cancer. There is also thickening of the dome of the bladder which is suspicious for Malignancy as well. This appears to be diffusely metastatic disease. I had a long discussion with the patient's son. She is quite weak and frail. I discussed the goals of care with the son. He wants to pursue full treatment at this time. He stated that he would like to know what type of malignancy this is and wants to pursue a biopsy. After review of imaging, I believe that we can obtain a CT-guided biopsy of the lung mass. We can pursue this once the patient is more stable. She has quite poor performance status and had a history of stroke. If this is a confirmed malignancy, the treatment options are limited due to the fact that she has a very poor performance status. I would recommend asking palliative care to discuss goals of care with the family again. 2. Hypercalcemia of malignancy. Her calcium is elevated at 12.4. I would recommend IV hydration. We will give her calcitonin and steroids. 3. Acute renal failure likely due to volume contraction and hypocalcemia. 4. Altered mental status due to hypercalcemia and possibly underlying infection. 5. Lactic acidosis. 6. History of stroke and debilitated state. Thank you for allowing me to participate in the care of this patient. I will continue to follow this patient along. MD NAT Trejo/KITTY /2:17 AM /6:53 AM MTDD
[2017-06-19 07:12] LABS: REVIEW FLAG FINAL
[2017-06-19 07:25] LABS: INDIRECT BILIRUBIN 0.8 MG/DL (0.0-0.8); POTASSIUM 3.7 MEQ/L (3.5-5.1); TOTAL BILIRUBIN ADULT 4.2 MG/DL (0.2-1.0)
[2017-06-19] MEDS: INSULIN ASPART SUPPLEMENTAL SCALE SQ SCH ×4 (08:00→20:25)
--- NOTE | 2017-06-19 08:08 | HHI.PR ---
Subjective Remarks Still confused. Doesn't follow much commands. Doesn't answer appropriately questions. No fever or chills. No n/v. Had a BM. Objective Vitals Vital Signs Date Time Temp Pulse Resp B/P (MAP) Pulse Ox O2 Delivery O2 Flow Rate FiO2 06/19/17 06:45 146/78 (100) 06/19/17 05:31 97.3 106 17 185/77 (113) 97 06/19/17 00:30 98.2 106 17 184/79 (114) 97 06/18/17 20:30 97.5 102 17 161/70 (100) 98 06/18/17 20:11 92 06/18/17 16:03 103 18 156/72 (100) 97 Room Air 06/18/17 14:22 95 Room Air 06/18/17 13:41 97.5 119 16 129/59 (82) I/O 06/18/17 06/18/17 06/18/17 06/19/17 06/19/17 06/19/17 07:00 15:00 23:00 07:00 15:00 23:00 Intake Total 906 ml 805 ml Balance 906 ml 805 ml Intake Oral 300 ml 120 ml IV Total 606 ml 685 ml # Voids 2 2 Result Diagram: 06/19/17 0603 06/19/17 0603 Imaging Last Impressions Abdomen/Pelvis CT 06/18/17 1554 Signed Impressions: Service Date/Time: Sunday, June 18, 2017 16:26 - CONCLUSION: Very inhomogeneous liver with what appears to be multiple masses on this unenhanced study. I suspect it is widespread metastatic disease. 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 Jose Barry MD Chest CT 06/18/17 1440 Signed Impressions: Service Date/Time: Sunday, June 18, 2017 16:26 - CONCLUSION: 1. 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 2. Numerous small pulmonary nodules scattered throughout the lungs likely metastatic disease. The nodule in the right middle lobe does abut the visceral pleura and would be amenable to CT-guided biopsy if needed. Jose Barry MD Head CT 06/18/17 1403 Signed Impressions: Service Date/Time: Sunday, June 18, 2017 14:21 - CONCLUSION: 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 No evidence of hemorrhage or edema. No mass or mass effect. Jose Barry MD Chest X-Ray 06/18/17 1403 Signed Impressions: Service Date/Time: Sunday, June 18, 2017 14:19 - CONCLUSION: Soft tissue mass in the AP window and left hilum. Outpatient contrasted chest CT is recommended. Jose Barry MD Objective Remarks GENERAL: This is a very thin female in no acute distress. SKIN: No rashes, ecchymoses or lesions. Cool and dry. HEAD: Atraumatic. Normocephalic. No temporal or scalp tenderness. EYES: Pupils equal round and reactive. Extraocular motions intact. No scleral icterus. No injection or drainage. ENT: Nose without bleeding, purulent drainage or septal hematoma. Throat without erythema, tonsillar hypertrophy or exudate. Uvula midline. Airway patent. NECK: Trachea midline. No JVD or lymphadenopathy. Supple, nontender, no meningeal signs. CARDIOVASCULAR: Regular rate and rhythm without murmurs, gallops, or rubs. RESPIRATORY: Clear to auscultation. Breath sounds equal bilaterally. No wheezes , rales, or rhonchi. GASTROINTESTINAL: Abdomen soft, non-tender, nondistended. No hepato-splenomegaly , or palpable masses. No guarding. MUSCULOSKELETAL: Extremities without clubbing, cyanosis, or edema. No joint tenderness, effusion, or edema noted. No calf tenderness. Negative Homans sign bilaterally. NEUROLOGICAL: Awake and alert. Slight left facial droop that's normal for her. Motor and sensory grossly within normal limits. Speech is intact. A/P Assessment and Plan 81-year-old female who became in with confusion Metabolic encephalopathy -Labs review significant for hypoglycemia, renal insufficiency, hypercalcemia, leukocytosis. Most likely may be due to combination of dehydration and poss decreased PO intake. -CT scan the brain shows an old right infarct. -Will treat underlying problem. Seems to be improving at the moment. Continue to monitor clinically. -Consult tangled yarn worker , calorie count Sepsis vs SIRS -Elevated white count at 25,000 and tachycardia. Source may be secondary to UTI. -Will obtain UA. Chest x-ray showed pulmonary mass. -Blood cultures already obtained in the ED. Will get a lactic acid. -Patient was given cefepime in the ED. Will start Rocephin pending infectious workup. -Start IV fluids. -Continue to monitor clinically. Multiple pulmonary and liver nodules -Found on CT scan. Also bladder wall thickening was suggest transitional cell carcinoma. -Per CT scan there is a pulmonary and nodule that is amenable to CT percutaneous guided biopsy. Will get recommendations from oncologist. Hypercalcemia -Calcium is at 12.6 corrected. -Most likely secondary to metastatic disease. -Will start patient on IV fluids. Continue to monitor. Elevated liver enzymes and alkaline phosphatase -CT scan suggest metastatic liver disease. -Most likely secondary to metastatic liver disease. Sees treatment as above. -Continue monitoring trend. Acute renal sufficiency -There is no baseline for comparison. BUN is elevated at 50 with a creatinine 1.6. With elevated BUN suggest possible dehydration. -Treat with IV fluids. -Strict ins and outs. -Avoid nephrotoxins. Continue to trend creatinine. HHS -Patient blood sugar elevated 600. No anion gap. She is in renal failure and is dehydrated. -Will treat aggressively with IV fluids and place patient on insulin sliding scale. -Hold metformin and glipizide. -Will monitor labs and adjust insulin accordingly. Chronic anticoagulation -Patient son is unsure why she is on Coumadin. Will need to hold for possible lung biopsy. -INR is 1.2. She is not therapeutic. Most likely patient was noncompliant. Hypertension -Resume home medication. Hyperlipidemia -Since LFTs elevated will hold statin. History CVA -Patient is not on aspirin. She was most likely on Coumadin due to history CVA but unsure. DVT prophylaxis -Heparin renally dose. Code Status full code Discussed Condition With patient, nurse DC plan: pending improvement Sheela Silvestre MD Jun 19, 2017 08:08
[2017-06-19] MEDS: SODIUM CHLORIDE 0.9% FLUSH 10 ML FLUSH IV FLUSH SCH ×2 (09:00→20:21)
--- NOTE | 2017-06-19 10:41 | EKG ---
Date Performed: 06/18/2017 Time Performed: 14:51:18 PTAGE: 81 years EKG: SINUS TACHYCARDIA POSSIBLE LEFT ATRIAL ENLARGEMENT ABNORMAL RHYTHM ECG NO PREVIOUS TRACING DOCTOR: Bhupendra Jenkins Interpretating Date/Time 06/19/2017 10:41:31
[2017-06-19] MEDS: DOCUSATE SODIUM 50 MG/SENNA 8.6 MG TAB PO SCH ×2 (11:13→20:21)
[2017-06-19] MEDS: cefTRIAXone INJ 1,000 MG in SODIUM CHLORIDE 0.9% INJ 100 ML IV SCH (14:33)
[2017-06-19] MEDS: HEPARIN SODIUM - SQ 10,000 UNITS/ML VIAL SQ SCH ×2 (14:38→20:22)
--- NOTE | 2017-06-19 19:35 | PD.ONC.PN ---
Subjective Subjective Remarks lethargic confused weak/thin/cachectic Objective Data Date Time Temp Pulse Resp B/P (MAP) Pulse Ox O2 Delivery O2 Flow Rate FiO2 06/19/17 15:06 98.0 102 20 147/67 (93) 97 06/19/17 13:53 97.7 80 20 176/96 (122) 94 06/19/17 08:10 97.1 84 18 142/62 (88) 98 06/19/17 06:45 146/78 (100) 06/19/17 05:31 97.3 106 17 185/77 (113) 97 06/19/17 00:30 98.2 106 17 184/79 (114) 97 06/18/17 20:30 97.5 102 17 161/70 (100) 98 06/18/17 20:11 92 06/19/17 06/19/17 06/19/17 07:00 15:00 23:00 Intake Total 805 ml 360 ml Balance 805 ml 360 ml Result Diagram: 06/19/17 0603 06/19/17 0603 Laboratory Results Laboratory Tests Test 06/19/17 04:45 06/19/17 06:03 06/19/17 06:29 06/19/17 10:40 Urine Color YELLOW Urine Turbidity HAZY Urine pH 6.0 Urine Specific [place] 1.014 Urine Protein 100 mg/dL Urine Glucose (UA) 150 mg/dL Urine Ketones NEG mg/dL Urine Occult Blood MOD Urine Nitrite NEG Urine Bilirubin NEG Urine Urobilinogen LESS THAN 2.0 MG/DL Urine Leukocyte Esterase LARGE Urine RBC 70 /hpf Urine WBC /hpf Urine WBC Clumps FEW Urine Squamous Epithelial Cells 8 /hpf Urine Bacteria RARE /hpf Urine Hyaline Casts 2 /lpf Urine Mucus FEW /lpf Microscopic Urinalysis Comment CATH-CULTURE IND White Blood Count 24.5 TH/MM3 Red Blood Count 4.29 MIL/MM3 Hemoglobin 13.3 GM/DL Hematocrit 40.0 % Mean Corpuscular Volume 93.1 FL Mean Corpuscular Hemoglobin 30.9 PG Mean Corpuscular Hemoglobin Concent 33.2 % Red Cell Distribution Width 14.4 % Platelet Count 63 TH/MM3 Mean Platelet Volume 9.0 FL Blood Urea Nitrogen 49 MG/DL Creatinine 1.37 MG/DL Random Glucose 132 MG/DL Total Protein 6.2 GM/DL Albumin 3.1 GM/DL Calcium Level 11.5 MG/DL Alkaline Phosphatase 955 U/L Aspartate Amino Transf (AST/SGOT) 212 U/L Alanine Aminotransferase (ALT/SGPT) 144 U/L Total Bilirubin 4.2 MG/DL Direct Bilirubin 3.4 MG/DL Sodium Level 144 MEQ/L Potassium Level 3.7 MEQ/L Chloride Level 110 MEQ/L Carbon Dioxide Level 24.0 MEQ/L Anion Gap 10 MEQ/L Estimat Glomerular Filtration Rate 37 ML/MIN Indirect Bilirubin 0.8 MG/DL Parathyroid Hormone (Intact) 3.2 PG/ML Lactic Acid Level 1.4 mmol/L Culture Results Microbiology Date/Time Source Procedure Growth Status 06/18/17 14:20 Blood Peripheral Aerobic Blood Culture - Preliminary NO GROWTH IN 1 DAY Resulted 06/18/17 14:20 Blood Peripheral Anaerobic Blood Culture - Preliminary NO GROWTH IN 1 DAY Resulted 06/18/17 14:10 Blood Peripheral Aerobic Blood Culture - Preliminary NO GROWTH IN 1 DAY Resulted 06/18/17 14:10 Blood Peripheral Anaerobic Blood Culture - Preliminary NO GROWTH IN 1 DAY Resulted 06/19/17 04:45 Urine Catheterized Urine Urine Culture Pending Received Administered Medications Medications (Trade) Dose Ordered Sig/Wil Route PRN Reason Start Time Stop Time Status Last Admin Dose Admin Insulin Aspart (NovoLOG SUPPLEMENTAL SCALE) 1 ACHS SLIDING SCALE SQ 06/18/17 17:00 06/19/17 17:00 Sodium Chloride 1,000 ml @ 100 mls/hr Q10H IV 06/18/17 16:18 06/19/17 12:18 Senna/Docusate Sodium (Eugenia-Colace) 1 tab BID PO 06/18/17 21:00 06/19/17 11:13 Ceftriaxone Sodium 1000 mg/ Sodium Chloride 100 ml @ 200 mls/hr Q24H IV 06/19/17 12:00 06/19/17 14:33 Amlodipine Besylate (Norvasc) 10 mg DAILY PO 06/19/17 09:00 06/19/17 11:13 Dorzolamide/ Timolol (Cosopt 2-0.5% Opth Soln) 1 drop BID RIGHT EYE 06/18/17 21:00 06/19/17 09:00 Pilocarpine HCl (Pilocar 2% Opth Soln) 1 drop Q6HR RIGHT EYE 06/19/17 00:00 06/19/17 18:00 Heparin Sodium (Porcine) (Heparin Inj) 5,000 units Q12HR SQ 06/18/17 21:00 06/19/17 14:38 Insulin Detemir (Levemir Inj) 10 units HS SQ 06/18/17 21:00 06/18/17 21:00 Objective Remarks GENERAL: nad. confused, cachectic SKIN: Warm and dry. NECK: Supple, trachea midline. No JVD or lymphadenopathy. LYMPHATIC: No adenopathy. CARDIOVASCULAR: Regular rate and rhythm without murmurs. RESPIRATORY: Breath sounds equal bilaterally. No accessory muscle use. GASTROINTESTINAL: Abdomen soft, non-tender, nondistended. EXTREMITIES: No cyanosis, or edema. Assessment/Plan Problem List: (1) Acute renal failure ICD Codes: N17.9 - Acute kidney failure, unspecified Status: Acute (2) Altered mental status ICD Codes: R41.82 - Altered mental status, unspecified Status: Acute (3) Elevated liver enzymes ICD Codes: R74.8 - Abnormal levels of other serum enzymes Status: Acute (4) Hypercalcemia ICD Codes: E83.52 - Hypercalcemia Plan: -- s/p calcitonin and Ca level is now normalized at 9.0 -- On IVF with NS @ 100ml/hr -- Likely due to metastatic disease -- PTH low at 3.2 (5) Liver mass ICD Codes: R16.0 - Hepatomegaly, not elsewhere classified Plan: --family/patient not desirous of treatment/workup. -- Multiple liver and lung lesions noted on CT. -- These appear consistent with metastatic disease Hx/Workup: The pt was apparently living independently but over the past week or so has had frequent falls and confusion. (6) Confusion ICD Codes: R41.0 - Disorientation, unspecified Assessment 81-year-old female with a past medical history of stroke, hypertension, and diabetes who was brought to the emergency room with altered mental status. She was found to be hypercalcemic and has multiple liver masses as well as lung masses. 1. Liver lesions and lung lesions are highly suspicious for metastatic cancer. There is also thickening of the dome of the bladder which is suspicious for Malignancy as well. This appears to be diffusely metastatic disease. CT guided biopsy once more stable 2. Hypercalcemia of malignancy. - Hydration -repeat Calcitonin 3. Acute renal failure likely due to volume contraction and hypocalcemia. 4. Altered mental status due to hypercalcemia and possibly underlying infection. 5. Lactic acidosis. 6. History of stroke and debilitated state. D/W son--long discussion. still wants to pursue biopsy if malignancy is conformed, treatment options will be limited due to her debilitated state d/w rn o/n events reviewed approximately 30 minutes spent in face to face evaluation of this patient. Discussion with family. David Jarvis MD Jun 19, 2017 19:35
[2017-06-19] MEDS ORDERED: CALCITONIN SALMON INJ 400 UNITS/2 ML VIAL SQ ONE (20:00)
[2017-06-19] MEDS: INSULIN DETEMIR 100 UNITS/ML VIAL SQ SCH (20:25)
[2017-06-20] VITALS (7 sets, daily range): BP systolic 130–163; BP diastolic 60–91; PULSE 96–113; RESP 16–20; TEMP 97.3–98.4; O2SAT 95–98
[2017-06-20] MEDS: PILOCARPINE HCL 2% OPHT SOLN 15 ML BTL RIGHT EYE SCH ×3 (05:54→17:26)
[2017-06-20] MEDS: SODIUM CHLOR 0.9% 1000 ML INJ 1,000 ML IV SCH ×2 (05:56→17:24)
[2017-06-20 08:21] LABS: AUTOMATED NEUTROPHIL # 23.5 TH/MM3 (1.8-7.7); BASOPHIL % 0.1 % (0.0-2.0); EOSINOPHIL % 0.1 % (0.0-4.0); HEMATOCRIT 38.5 % (35.0-46.0); LYMPH % 1.8 % (9.0-44.0); LYMPHOCYTE # 0.5 TH/MM3 (1.0-4.8); MEAN CELL VOLUME 92.5 FL (80.0-100.0); MEAN CORPUSCULAR HEMOGLOBIN 30.6 PG (27.0-34.0); MEAN CORPUSCULAR HGB CONC 33.1 % (32.0-36.0); MONO % 7.7 % (0.0-8.0); NEUT % 90.3 % (16.0-70.0); PLATELET COUNT 64 TH/MM3 (150-450); RED BLOOD COUNT 4.17 MIL/MM3 (4.00-5.30); RED CELL DISTRIBUTION WIDTH 14.9 % (11.6-17.2)
[2017-06-20 08:28] LABS: HEMO FLAGS AUTO DIFF
[2017-06-20 08:50] LABS: ALKALINE PHOSPHATASE 813 U/L (45-117); ALT (GPT) 138 U/L (10-53); ANION GAP 8 MEQ/L (5-15); AST (GOT) 226 U/L (15-37); BICARBONATE 22.9 MEQ/L (21.0-32.0); BLOOD UREA NITROGEN 31 MG/DL (7-18); CHLORIDE 115 MEQ/L (98-107); GLOMERULAR FILTRATION RATE 66 ML/MIN (>89); POTASSIUM 3.3 MEQ/L (3.5-5.1); SODIUM (NA) 146 MEQ/L (136-145); TOTAL BILIRUBIN ADULT 4.3 MG/DL (0.2-1.0)
[2017-06-20] MEDS: SODIUM CHLORIDE 0.9% FLUSH 10 ML FLUSH IV FLUSH SCH ×2 (09:00→21:00)
[2017-06-20] MEDS: DOCUSATE SODIUM 50 MG/SENNA 8.6 MG TAB PO SCH ×2 (09:00→22:54)
[2017-06-20 09:15] LABS: BANDS 11 % (0-6); METAMYELOCYTES 1 % (0-1); MYELOCYTES 4 % (0-0); NEUTROPHIL # MANUAL DIFF 22.4 TH/MM3 (1.8-7.7); POLYS (SEG NEUTROPHILS) 70 % (16-70); WBC DIFF SAMPLE 100
[2017-06-20 09:16] LABS: PLATELET ESTIMATE SMEAR LOW (NORMAL); PLATELET MORPHOLOGY NORMAL (NORMAL); SCAN/DIFF FINAL DIFF MANUAL; TOXIC GRANULATION 1+ (NORMAL); TOXIC VACUOLATION PRESENT (NONE SEEN)
--- NOTE | 2017-06-20 10:23 | PD.ONC.PN ---
Subjective Subjective Remarks Afebrile Pt extremely COUNCIL No family at bedside during exam Still confused Denies pain Objective Data Date Time Temp Pulse Resp B/P (MAP) Pulse Ox O2 Delivery O2 Flow Rate FiO2 06/20/17 03:40 97.8 96 18 153/72 (99) 95 06/19/17 23:08 97.8 101 19 140/95 (110) 95 06/19/17 22:48 94 06/19/17 20:00 97.4 101 18 171/64 (99) 97 06/19/17 15:06 98.0 102 20 147/67 (93) 97 06/19/17 13:53 97.7 80 20 176/96 (122) 94 06/20/17 06/20/17 06/20/17 07:00 15:00 23:00 Intake Total 1000 ml Balance 1000 ml Result Diagram: 06/20/17 0650 06/20/17 0650 Laboratory Results Laboratory Tests Test 06/19/17 10:40 06/20/17 06:50 Lactic Acid Level 1.4 mmol/L White Blood Count 26.0 TH/MM3 Red Blood Count 4.17 MIL/MM3 Hemoglobin 12.7 GM/DL Hematocrit 38.5 % Mean Corpuscular Volume 92.5 FL Mean Corpuscular Hemoglobin 30.6 PG Mean Corpuscular Hemoglobin Concent 33.1 % Red Cell Distribution Width 14.9 % Platelet Count 64 TH/MM3 Mean Platelet Volume 9.0 FL Neutrophils (%) (Auto) 90.3 % Lymphocytes (%) (Auto) 1.8 % Monocytes (%) (Auto) 7.7 % Eosinophils (%) (Auto) 0.1 % Basophils (%) (Auto) 0.1 % Neutrophils # (Auto) 23.5 TH/MM3 Lymphocytes # (Auto) 0.5 TH/MM3 Monocytes # (Auto) 2.0 TH/MM3 Eosinophils # (Auto) 0.0 TH/MM3 Basophils # (Auto) 0.0 TH/MM3 CBC Comment AUTO DIFF Differential Total Cells Counted 100 Neutrophils % (Manual) 70 % Band Neutrophils % 11 % Lymphocytes % 7 % Monocytes % 7 % Neutrophils # (Manual) 22.4 TH/MM3 Metamyelocytes 1 % Myelocytes 4 % Differential Comment FINAL DIFF MANUAL Toxic Granulation 1+ Toxic Vacuolation PRESENT Platelet Estimate LOW Platelet Morphology Comment NORMAL Blood Urea Nitrogen 31 MG/DL Creatinine 0.83 MG/DL Random Glucose 41 MG/DL Total Protein 5.7 GM/DL Albumin 2.6 GM/DL Calcium Level 9.0 MG/DL Alkaline Phosphatase 813 U/L Aspartate Amino Transf (AST/SGOT) 226 U/L Alanine Aminotransferase (ALT/SGPT) 138 U/L Total Bilirubin 4.3 MG/DL Sodium Level 146 MEQ/L Potassium Level 3.3 MEQ/L Chloride Level 115 MEQ/L Carbon Dioxide Level 22.9 MEQ/L Anion Gap 8 MEQ/L Estimat Glomerular Filtration Rate 66 ML/MIN Culture Results Microbiology Date/Time Source Procedure Growth Status 06/18/17 14:20 Blood Peripheral Aerobic Blood Culture - Preliminary NO GROWTH IN 1 DAY Resulted 06/18/17 14:20 Blood Peripheral Anaerobic Blood Culture - Preliminary NO GROWTH IN 1 DAY Resulted 06/18/17 14:10 Blood Peripheral Aerobic Blood Culture - Preliminary NO GROWTH IN 1 DAY Resulted 06/18/17 14:10 Blood Peripheral Anaerobic Blood Culture - Preliminary NO GROWTH IN 1 DAY Resulted 06/19/17 04:45 Urine Catheterized Urine Urine Culture - Preliminary NO GROWTH IN 24 HOURS. Resulted Administered Medications Medications (Trade) Dose Ordered Sig/Wil Route PRN Reason Start Time Stop Time Status Last Admin Dose Admin Insulin Aspart (NovoLOG SUPPLEMENTAL SCALE) 1 ACHS SLIDING SCALE SQ 06/18/17 17:00 06/19/17 20:25 Sodium Chloride 1,000 ml @ 100 mls/hr Q10H IV 06/18/17 16:18 06/20/17 05:56 Senna/Docusate Sodium (Eugenia-Colace) 1 tab BID PO 06/18/17 21:00 06/19/17 20:21 Ceftriaxone Sodium 1000 mg/ Sodium Chloride 100 ml @ 200 mls/hr Q24H IV 06/19/17 12:00 06/19/17 14:33 Amlodipine Besylate (Norvasc) 10 mg DAILY PO 06/19/17 09:00 06/19/17 11:13 Dorzolamide/ Timolol (Cosopt 2-0.5% Opth Soln) 1 drop BID RIGHT EYE 06/18/17 21:00 06/19/17 20:21 Pilocarpine HCl (Pilocar 2% Opth Soln) 1 drop Q6HR RIGHT EYE 06/19/17 00:00 06/20/17 05:54 Heparin Sodium (Porcine) (Heparin Inj) 5,000 units Q12HR SQ 06/18/17 21:00 06/19/17 20:22 Insulin Detemir (Levemir Inj) 10 units HS SQ 06/18/17 21:00 06/19/17 20:25 Objective Remarks GENERAL: Cachetic, frail appearing elderly female resting in bed asleep in no obvious distress SKIN: Warm and dry. HEAD: Normocephalic. +COUNCIL EYES: No injection or drainage. NECK: Supple, trachea midline. CARDIOVASCULAR: 3/6 murmur noted. RESPIRATORY: Clear, diminished anteriorly. Breathing unlabored at rest. GASTROINTESTINAL: Abdomen soft, non-tender to palpation. EXTREMITIES: No cyanosis, or edema. MUSCULOSKELETAL: Adequate muscle tone. NEUROLOGICAL: Moving all extremities. Awake, alert, and confused. Assessment/Plan Problem List: (1) Hypercalcemia ICD Codes: E83.52 - Hypercalcemia Plan: -- s/p calcitonin and Ca level is now normalized at 9.0 -- On IVF with NS @ 100ml/hr -- Likely due to metastatic disease -- PTH low at 3.2 (2) Liver mass ICD Codes: R16.0 - Hepatomegaly, not elsewhere classified Plan: -- Multiple liver and lung lesions noted on CT. -- These appear consistent with metastatic disease -- Will get CT guided biopsy when clinically improved Hx/Workup: The pt was apparently living independently but over the past week or so has had frequent falls and confusion. Assessment 81 y/o female admitted with confusion and falls found to have multiple lesions in lung and liver that appear to be metastatic disease Plan 1. Hold off on biopsy until clinically improved 2. With her poor performance status it will be difficult to treat 3. Consult palliative care for goals Attending Statement The exam, history, and the medical decision-making described in the above note were completed with the assistance of the mid-level provider. I reviewed and agree with the findings presented. I attest that I had a [id number] encounter with the patient on the same day, and personally performed and documented my assessment and findings in the medical record Bernadine Nolen Jun 20, 2017 10:23 David Jarvis MD Jun 23, 2017 23:03
[2017-06-20] MEDS: HEPARIN SODIUM - SQ 10,000 UNITS/ML VIAL SQ SCH ×3 (11:02→22:54)
[2017-06-20] MEDS: DORZOLAMIDE/TIMOLOL OPTH SOLN 10 ML BTL RIGHT EYE SCH ×2 (11:05→22:55)
--- NOTE | 2017-06-20 11:07 | HHI.PR ---
Subjective Remarks Getting ECHO. Patient appears in nad. Still confused. No complaints. Doesn't follow commands. Not eating BS low started on hypoglycemic protocol. Garment Turner following for calorie count might need feeding tube. Objective Vitals Vital Signs Date Time Temp Pulse Resp B/P (MAP) Pulse Ox O2 Delivery O2 Flow Rate FiO2 06/20/17 03:40 97.8 96 18 153/72 (99) 95 06/19/17 23:08 97.8 101 19 140/95 (110) 95 06/19/17 22:48 94 06/19/17 20:00 97.4 101 18 171/64 (99) 97 06/19/17 15:06 98.0 102 20 147/67 (93) 97 06/19/17 13:53 97.7 80 20 176/96 (122) 94 I/O 06/19/17 06/19/17 06/19/17 06/20/17 06/20/17 06/20/17 07:00 15:00 23:00 07:00 15:00 23:00 Intake Total 805 ml 360 ml 1000 ml Balance 805 ml 360 ml 1000 ml Intake Oral 120 ml 360 ml IV Total 685 ml 1000 ml # Voids 2 3 3 Result Diagram: 06/20/17 0650 06/20/17 0650 Imaging Last Impressions Abdomen/Pelvis CT 06/18/17 1554 Signed Impressions: Service Date/Time: Sunday, June 18, 2017 16:26 - CONCLUSION: Very inhomogeneous liver with what appears to be multiple masses on this unenhanced study. I suspect it is widespread metastatic disease. 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 Jose Barry MD Chest CT 06/18/17 1440 Signed Impressions: Service Date/Time: Sunday, June 18, 2017 16:26 - CONCLUSION: 1. 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 2. Numerous small pulmonary nodules scattered throughout the lungs likely metastatic disease. The nodule in the right middle lobe does abut the visceral pleura and would be amenable to CT-guided biopsy if needed. Jose Barry MD Head CT 06/18/17 1403 Signed Impressions: Service Date/Time: Sunday, June 18, 2017 14:21 - CONCLUSION: 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 No evidence of hemorrhage or edema. No mass or mass effect. Jose Barry MD Chest X-Ray 06/18/17 1403 Signed Impressions: Service Date/Time: Sunday, June 18, 2017 14:19 - CONCLUSION: Soft tissue mass in the AP window and left hilum. Outpatient contrasted chest CT is recommended. Jose Barry MD Objective Remarks GENERAL: This is a very thin female in no acute distress. SKIN: No rashes, ecchymoses or lesions. Cool and dry. HEAD: Atraumatic. Normocephalic. No temporal or scalp tenderness. EYES: Pupils equal round and reactive. Extraocular motions intact. No scleral icterus. No injection or drainage. ENT: Nose without bleeding, purulent drainage or septal hematoma. Throat without erythema, tonsillar hypertrophy or exudate. Uvula midline. Airway patent. NECK: Trachea midline. No JVD or lymphadenopathy. Supple, nontender, no meningeal signs. CARDIOVASCULAR: Regular rate and rhythm without murmurs, gallops, or rubs. RESPIRATORY: Clear to auscultation. Breath sounds equal bilaterally. No wheezes , rales, or rhonchi. GASTROINTESTINAL: Abdomen soft, non-tender, nondistended. No hepato-splenomegaly , or palpable masses. No guarding. MUSCULOSKELETAL: Extremities without clubbing, cyanosis, or edema. No joint tenderness, effusion, or edema noted. No calf tenderness. Negative Homans sign bilaterally. NEUROLOGICAL: Awake and alert. Slight left facial droop that's normal for her. Motor and sensory grossly within normal limits. Speech is intact. A/P Assessment and Plan 81-year-old female who became in with confusion Metabolic encephalopathy -Labs review significant for hypoglycemia, renal insufficiency, hypercalcemia, leukocytosis. Most likely may be due to combination of dehydration and poss decreased PO intake. -CT scan the brain shows an old right infarct. -Will treat underlying problem. Seems to be improving at the moment. Continue to monitor clinically. -Consult social media marketer , calorie count Hypoglycemia 2/2 decreased PO intake. Not eating BS low started on hypoglycemic protocol. Garment Turner following for calorie count might need feeding tube. Sepsis vs SIRS -Elevated white count at 25,000 and tachycardia. Source may be secondary to UTI. -Will obtain UA. Chest x-ray showed pulmonary mass. -Blood cultures already obtained in the ED. Will get a lactic acid. -Patient was given cefepime in the ED. Will start Rocephin pending infectious workup. -Start IV fluids. -Continue to monitor clinically. Multiple pulmonary and liver nodules -Found on CT scan. Also bladder wall thickening was suggest transitional cell carcinoma. -Per CT scan there is a pulmonary and nodule that is amenable to CT percutaneous guided biopsy. Will get recommendations from oncologist. Hypercalcemia -Calcium is at 12.6 corrected. -Most likely secondary to metastatic disease. -Will start patient on IV fluids. Continue to monitor. Elevated liver enzymes and alkaline phosphatase -CT scan suggest metastatic liver disease. -Most likely secondary to metastatic liver disease. Sees treatment as above. -Continue monitoring trend. Acute renal sufficiency -There is no baseline for comparison. BUN is elevated at 50 with a creatinine 1.6. on admission. With elevated BUN suggest possible dehydration. -Treat with IV fluids. -Strict ins and outs. -Avoid nephrotoxins. Continue to trend creatinine. HHS -Patient blood sugar elevated 600. No anion gap. She is in renal failure and is dehydrated. -Will treat aggressively with IV fluids and place patient on insulin sliding scale. -Hold metformin and glipizide. -Will monitor labs and adjust insulin accordingly. -Now with hypoglycemia BS of 41 . On hypoglycemic protocol. Monitor BS closely. Might need feeding tube, social media marketer for gera counting ff. Chronic anticoagulation -Patient son is unsure why she is on Coumadin. Will need to hold for possible lung biopsy. -INR is 1.2. She is not therapeutic. Most likely patient was noncompliant. Hypertension -Resume home medication. Hyperlipidemia -Since LFTs elevated will hold statin. History CVA -Patient is not on aspirin. She was most likely on Coumadin due to history CVA but unsure. DVT prophylaxis -Heparin renally dose. Code Status full code Discussed Condition With patient, nurse DC plan: pending improvement. Palliative care following for goals of care. Calorie count patient not eating with hypoglycemia on hypoglycemic protocol. Might need feeding tube. Patient with lesions on imaging consistent with metastatic disease, however treatment might not be an option as patient with decrease functioning. Hem/onc ff. Sheela iSlvestre MD Jun 20, 2017 11:07
--- NOTE | 2017-06-20 13:31 | PD.CONS ---
Consult Service Palliative Care Consult Requested By Bernadine Nolen Primary Care Physician Todd Daniels MD Reason for Consultation a. To assist with evaluation and management of symptoms including:confusion b. To assist medical decision maker(s) with: better understanding of current medical conditions; weighing benefits/burdens of medical treatment options; making medical treatment decisions. HPI History of Present Illness 81-year-old with past medical history of diabetes, CVA on Coumadin, came into the ER for falls, weakness, and confusion. Patient condition has been declining for the past few weeks with associated nausea. In the ER: Temperature was 97.5, pulse is 119, respirations 16, blood pressure is 129/59, pulse ox is 95%. Patient was hospitalized and further workup follows. * WBC is 25.6, hemoglobin is 14.3, hematocrit is 44.1, platelet is 97 * Sodium is 133, potassium 4.8, chloride 99, bicarbonate was 22.9, BUN is 50, creatinine is 1.68, random glucose is 626, lactic acid is 5.3, calcium is 24 is T is 176 ALTs 151, alkaline phosphatase is 1088 * PT is 13.7, INR is 1.2, PTT 22.4 * Blood cultures and urine cultures collected preliminary findings were negative * Head CT shows old right-sided stroke no hemorrhage or edema * Chest x-ray shows soft tissue mass in the AP window and left hilum * Chest CT shows pulmonary valve stenosis and unilateral enlargement of the left pulmonary artery. There is numerous small pulmonary nodules scattered throughout the lung likely metastatic disease. * CT of the abdomen shows multiple masses in the liver. This is due to suspected widespread metastatic disease. Oncology hematology was consulted. Oncology and hematology feels biopsy should be hold off on to patient clinically improve. Furthermore, oncology feels patient has poor palliative performance status and will be difficult to treat even if cancer is confirmed via biopsy. Palliative care was consulted to review goals of care. In the meantime patient's hospital condition is complicated by leukocytosis, fatigue, confusion. Patient on my visit sleeping, but easily awakens. She is extremely hard of hearing. When I ask her repeatedly, if she was in [place], she would answer something completly different, saying things like she needs a bedpan. I am unable to have and prolong conversation with patient and pt appears confused. Pt also appers to have some nystagmus of her eye. Pt could not endorse a history. It is mentioned pt has been confused. Able to meet with son at bedside. Son affirms that pt had told her she does not want chemotherapy. Son does want to wait for the cultures and workup to know what infections is being treated, before transfering to hospice. Pt is amenable to hospice consultation and focus on comfort care once infection workup as been addressed or concluded. Function/Cognitive Trajectory Patient has been getting weaker the past several weeks. Pt had been living independently up to this point, and had a fall several weeks ago. Since the fall pt has been weaker, memory becomes more poor, appetite decreased, wants to just stay in bed. Patient has had a stroke in the remote past. Review of Systems ROS Limitations: Clinical Condition Constitutional: COMPLAINS OF: Fatigue Eyes: COMPLAINS OF: Diplopia (nystagums), DENIES: Eye inflammation Ears, nose, mouth, throat: COMPLAINS OF: Hearing loss (hard of hearing) Respiratory: DENIES: Hemoptysis Cardiovascular: DENIES: Syncope Gastrointestinal: DENIES: Black stools, Bloody stools Musculoskeletal: COMPLAINS OF: Muscle aches Neurologic: COMPLAINS OF: Abnormal gait, Poor Balance Psychiatric: COMPLAINS OF: Confusion Past Family Social History Coded Allergies: Penicillins (Verified Allergy, Unknown, 06/18/17) Past Medical History Type 2 diabetes Glaucoma Hypertension History right CVA Hyperlipidemia Difficulty hearing Past Surgical History Patient denies any past surgical history. Her son is unsure if she has any past surgical history. Reported Medications Coumadin (Warfarin) 3 Mg Tab 3 Mg PO DAILY Amlodipine (Amlodipine Besylate) 10 Mg Tab 10 Mg PO DAILY Benzonatate 200 Mg Cap 200 Mg PO TID PRN Pilocarpine Opth 2% (Pilocarpine HCl) 2 % Soln 1 Drop RIGHT EYE Q6HR Metformin (Metformin HCl) 500 Mg Tab 500 Mg PO BIDPC Simvastatin 20 Mg Tab 20 Mg PO DAILY Glipizide 10 Mg Tab 10 Mg PO BIDAC Take 30 minutes before a meal Cosopt Opth Drops (Dorzolamide-Timolol Opth Drops) 22.3-6.8 Mg/Ml Soln 1 Drop RIGHT EYE BID Alphagan P Opth Drops (Brimonidine Tartrate) 0.1% Soln 1 Drop RIGHT EYE Q8HR Systane Opth Drops (Polyethylene Glycol-Propylene Glycol Opth Drp) 0.4-0.3% Soln 1-2 Drop EACH EYE PRN PRN Current Medications Medications (Trade) Dose Ordered Sig/Wil Route Start Time Stop Time Status Last Admin (D50w (Vial) Inj) 50 ml UNSCH PRN IV PUSH 06/18/17 16:30 (Glucagon Inj) 1 mg UNSCH PRN OTHER 06/18/17 16:30 (NovoLOG SUPPLEMENTAL SCALE) 1 ACHS SLIDING SCALE SQ 06/18/17 17:00 06/19/17 20:25 Sodium Chloride 1,000 ml @ 100 mls/hr Q10H IV 06/18/17 16:18 06/20/17 05:56 (NS Flush) 2 ml UNSCH PRN IV FLUSH 06/18/17 16:30 (NS Flush) 2 ml BID IV FLUSH 06/18/17 21:00 (Zofran Inj) 4 mg Q6H PRN IVP 06/18/17 16:30 (Narcan Inj) 0.4 mg UNSCH PRN IV PUSH 06/18/17 16:30 (Eugenia-Colace) 1 tab BID PO 06/18/17 21:00 06/19/17 20:21 (Milk Of Magnesia Liq) 30 ml Q12H PRN PO 06/18/17 16:30 (Senokot) 17.2 mg Q12H PRN PO 06/18/17 16:30 (Dulcolax Supp) 10 mg DAILY PRN RECTAL 06/18/17 16:30 (Lactulose Liq) 30 ml DAILY PRN PO 06/18/17 16:30 Ceftriaxone Sodium 1000 mg/ Sodium Chloride 100 ml @ 200 mls/hr Q24H IV 06/19/17 12:00 06/19/17 14:33 (Norvasc) 10 mg DAILY PO 06/19/17 09:00 06/20/17 11:02 (Cosopt 2-0.5% Opth Soln) 1 drop BID RIGHT EYE 06/18/17 21:00 06/20/17 11:05 (Pilocar 2% Opth Soln) 1 drop Q6HR RIGHT EYE 06/19/17 00:00 06/20/17 11:05 Patient Own Medication PT OWN MED: (Brimonidine Opth .. Q8HR RIGHT EYE 06/18/17 22:00 Future Hold (Heparin Inj) 5,000 units Q12HR SQ 06/18/17 21:00 06/20/17 11:02 (Levemir Inj) 10 units HS SQ 06/18/17 21:00 06/19/17 20:25 Family History Patient denies any past family history. Son is unsure of any past family history. Substance Use Tobacco: Denies Alcohol: Denies Prescription med abuse: Denies Illicits: Denies Psychosocial History Patient lives at home by herself Spiritual/Cultural Factors -day [facility] Surrogate: Copy in medical record Durable Power of Secretary To The Vice President: Copy in medical record Physical Exam Vital Signs Date Time Temp Pulse Resp B/P (MAP) Pulse Ox O2 Delivery O2 Flow Rate FiO2 06/20/17 12:00 97.6 109 18 163/91 (115) 98 Manual Cuff/Auscultation 06/20/17 11:16 97.3 102 16 130/66 (87) 98 06/20/17 03:40 97.8 96 18 153/72 (99) 95 06/19/17 23:08 97.8 101 19 140/95 (110) 95 06/19/17 22:48 94 06/19/17 20:00 97.4 101 18 171/64 (99) 97 06/19/17 15:06 98.0 102 20 147/67 (93) 97 06/19/17 13:53 97.7 80 20 176/96 (122) 94 Exam CONSTITUTIONAL/GENERAL: This is a frail elderly lady, in bed, appears bedbound, and could not take care of her own adls. SKIN: No jaundice, rashes, or lesions. Ecchymoses on upper extremities. No wounds seen anteriorly. HEAD: Atraumatic. Normocephalic. EYES: Pupils equal and round and reactive. right eye has left deviation. Extraocular motions intact. No scleral icterus. ENT: Hearing grossly normal. Nose without bleeding or purulent drainage. Throat without visible erythema, exudates, masses, or lesions. NECK: Trachea midline. Supple, nontender. No palpable thyroid enlargement or nodularity. CARDIOVASCULAR: Regular rate and rhythm without murmurs, gallops, or rubs. No JVD. Peripheral pulses symmetric. RESPIRATORY/CHEST: Symmetric, unlabored respirations. Clear to auscultation. Breath sounds equal bilaterally. No wheezes, rales, or rhonchi. GASTROINTESTINAL: Abdomen soft,distended. No hepato-splenomegaly, or palpable masses. No guarding. Bowel sounds present. GENITOURINARY: Without palpable bladder distension. Castellon catheter in place. MUSCULOSKELETAL: Extremities without clubbing, cyanosis, or edema. No joint tenderness or effusion noted. No calf tenderness. No mottling or clubbing. LYMPHATICS: No palpable cervical or supraclavicular adenopathy. NEUROLOGICAL: Awake and alert. Motor and sensory grossly within normal limits. Some confusion, does not answer question appropriately. Moves all extremities. PSYCHIATRIC: No obvious anxiety/depression. no apparent hallucinations or other psychotic thought process. Diagnostic Tests Laboratory Laboratory Tests Test 06/18/17 14:10 06/18/17 14:40 06/18/17 18:46 06/19/17 04:45 White Blood Count 25.6 TH/MM3 (4.0-11.0) Red Blood Count 4.67 MIL/MM3 (4.00-5.30) Hemoglobin 14.3 GM/DL (11.6-15.3) Hematocrit 44.1 % (35.0-46.0) Mean Corpuscular Volume 94.6 FL (80.0-100.0) Mean Corpuscular Hemoglobin 30.6 PG (27.0-34.0) Mean Corpuscular Hemoglobin Concent 32.4 % (32.0-36.0) Red Cell Distribution Width 14.5 % (11.6-17.2) Platelet Count 97 TH/MM3 (150-450) Mean Platelet Volume 9.5 FL (7.0-11.0) Neutrophils (%) (Auto) 89.5 % (16.0-70.0) Lymphocytes (%) (Auto) 3.3 % (9.0-44.0) Monocytes (%) (Auto) 7.1 % (0.0-8.0) Eosinophils (%) (Auto) 0.1 % (0.0-4.0) Basophils (%) (Auto) 0.0 % (0.0-2.0) Neutrophils # (Auto) 23.0 TH/MM3 (1.8-7.7) Lymphocytes # (Auto) 0.9 TH/MM3 (1.0-4.8) Monocytes # (Auto) 1.8 TH/MM3 (0-0.9) Eosinophils # (Auto) 0.0 TH/MM3 (0-0.4) Basophils # (Auto) 0.0 TH/MM3 (0-0.2) CBC Comment AUTO DIFF Differential Total Cells Counted 100 Neutrophils % (Manual) 91 % (16-70) Band Neutrophils % 3 % (0-6) Lymphocytes % 1 % (9-44) Monocytes % 3 % (0-8) Neutrophils # (Manual) 24.6 TH/MM3 (1.8-7.7) Metamyelocytes 1 % (0-1) Myelocytes 1 % (0-0) Nucleated Red Blood Cells 1 /100 WBC (0-0) Differential Comment FINAL DIFF MANUAL Toxic Vacuolation PRESENT (NONE SEEN) Platelet Estimate LOW (NORMAL) Platelet Morphology Comment NORMAL (NORMAL) Red Cell Morphology Comment NORMAL (NORMAL) Blood Urea Nitrogen 50 MG/DL (7-18) Creatinine 1.68 MG/DL (0.50-1.00) Random Glucose 626 MG/DL (74-106) Total Protein 7.0 GM/DL (6.4-8.2) Albumin 3.3 GM/DL (3.4-5.0) Calcium Level 12.4 MG/DL (8.5-10.1) Alkaline Phosphatase 1088 U/L (45-117) Aspartate Amino Transf (AST/SGOT) 176 U/L (15-37) Alanine Aminotransferase (ALT/SGPT) 151 U/L (10-53) Total Bilirubin 3.7 MG/DL (0.2-1.0) Sodium Level 133 MEQ/L (136-145) Potassium Level 4.8 MEQ/L (3.5-5.1) Chloride Level 99 MEQ/L (98-107) Carbon Dioxide Level 22.9 MEQ/L (21.0-32.0) Anion Gap 11 MEQ/L (5-15) Estimat Glomerular Filtration Rate 29 ML/MIN (>89) Protein Corrected Calcium 12.6 MG/DL (8.5-10.1) Troponin I 0.03 NG/ML (0.02-0.05) B-Hydroxybutyrate 1.00 MMOL/L (0.00-0.39) Prothrombin Time 13.7 SEC (9.8-11.6) Prothromb Time International Ratio 1.2 RATIO Activated Partial Thromboplast Time 22.4 SEC (24.3-30.1) Lactic Acid Level 5.3 mmol/L (0.4-2.0) Urine Color YELLOW (YELLW/STRAW) Urine Turbidity HAZY (CLEAR) Urine pH 6.0 (5.0-8.5) Urine Specific [place] 1.014 (1.002-1.035) Urine Protein 100 mg/dL (NEG-TRACE) Urine Glucose (UA) 150 mg/dL (NEG) Urine Ketones NEG mg/dL (NEG) Urine Occult Blood MOD (NEG) Urine Nitrite NEG (NEG) Urine Bilirubin NEG (NEG) Urine Urobilinogen LESS THAN 2.0 MG/DL (LESS Urine Leukocyte Esterase LARGE (NEG) Urine RBC 70 /hpf (0-3) Urine WBC /hpf (0-5) Urine WBC Clumps FEW (NONE) Urine Squamous Epithelial Cells 8 /hpf (0-5) Urine Bacteria RARE /hpf (NONE) Urine Hyaline Casts 2 /lpf (RARE) Urine Mucus FEW /lpf (OCC) Microscopic Urinalysis Comment CATH-CULTURE IND Test 06/19/17 06:03 06/19/17 06:29 06/19/17 10:40 06/20/17 06:50 White Blood Count 24.5 TH/MM3 (4.0-11.0) 26.0 TH/MM3 (4.0-11.0) Red Blood Count 4.29 MIL/MM3 (4.00-5.30) 4.17 MIL/MM3 (4.00-5.30) Hemoglobin 13.3 GM/DL (11.6-15.3) 12.7 GM/DL (11.6-15.3) Hematocrit 40.0 % (35.0-46.0) 38.5 % (35.0-46.0) Mean Corpuscular Volume 93.1 FL (80.0-100.0) 92.5 FL (80.0-100.0) Mean Corpuscular Hemoglobin 30.9 PG (27.0-34.0) 30.6 PG (27.0-34.0) Mean Corpuscular Hemoglobin Concent 33.2 % (32.0-36.0) 33.1 % (32.0-36.0) Red Cell Distribution Width 14.4 % (11.6-17.2) 14.9 % (11.6-17.2) Platelet Count 63 TH/MM3 (150-450) 64 TH/MM3 (150-450) Mean Platelet Volume 9.0 FL (7.0-11.0) 9.0 FL (7.0-11.0) Blood Urea Nitrogen 49 MG/DL (7-18) 31 MG/DL (7-18) Creatinine 1.37 MG/DL (0.50-1.00) 0.83 MG/DL (0.50-1.00) Random Glucose 132 MG/DL (74-106) 41 MG/DL (74-106) Total Protein 6.2 GM/DL (6.4-8.2) 5.7 GM/DL (6.4-8.2) Albumin 3.1 GM/DL (3.4-5.0) 2.6 GM/DL (3.4-5.0) Calcium Level 11.5 MG/DL (8.5-10.1) 9.0 MG/DL (8.5-10.1) Alkaline Phosphatase 955 U/L (45-117) 813 U/L (45-117) Aspartate Amino Transf (AST/SGOT) 212 U/L (15-37) 226 U/L (15-37) Alanine Aminotransferase (ALT/SGPT) 144 U/L (10-53) 138 U/L (10-53) Total Bilirubin 4.2 MG/DL (0.2-1.0) 4.3 MG/DL (0.2-1.0) Direct Bilirubin 3.4 MG/DL (0.0-0.2) Sodium Level 144 MEQ/L (136-145) 146 MEQ/L (136-145) Potassium Level 3.7 MEQ/L (3.5-5.1) 3.3 MEQ/L (3.5-5.1) Chloride Level 110 MEQ/L (98-107) 115 MEQ/L (98-107) Carbon Dioxide Level 24.0 MEQ/L (21.0-32.0) 22.9 MEQ/L (21.0-32.0) Anion Gap 10 MEQ/L (5-15) 8 MEQ/L (5-15) Estimat Glomerular Filtration Rate 37 ML/MIN (>89) 66 ML/MIN (>89) Indirect Bilirubin 0.8 MG/DL (0.0-0.8) Parathyroid Hormone (Intact) 3.2 PG/ML (12.4-76.8) Lactic Acid Level 1.4 mmol/L (0.4-2.0) Neutrophils (%) (Auto) 90.3 % (16.0-70.0) Lymphocytes (%) (Auto) 1.8 % (9.0-44.0) Monocytes (%) (Auto) 7.7 % (0.0-8.0) Eosinophils (%) (Auto) 0.1 % (0.0-4.0) Basophils (%) (Auto) 0.1 % (0.0-2.0) Neutrophils # (Auto) 23.5 TH/MM3 (1.8-7.7) Lymphocytes # (Auto) 0.5 TH/MM3 (1.0-4.8) Monocytes # (Auto) 2.0 TH/MM3 (0-0.9) Eosinophils # (Auto) 0.0 TH/MM3 (0-0.4) Basophils # (Auto) 0.0 TH/MM3 (0-0.2) CBC Comment AUTO DIFF Differential Total Cells Counted 100 Neutrophils % (Manual) 70 % (16-70) Band Neutrophils % 11 % (0-6) Lymphocytes % 7 % (9-44) Monocytes % 7 % (0-8) Neutrophils # (Manual) 22.4 TH/MM3 (1.8-7.7) Metamyelocytes 1 % (0-1) Myelocytes 4 % (0-0) Differential Comment FINAL DIFF MANUAL Toxic Granulation 1+ (NORMAL) Toxic Vacuolation PRESENT (NONE SEEN) Platelet Estimate LOW (NORMAL) Platelet Morphology Comment NORMAL (NORMAL) Test 06/20/17 10:50 Random Glucose 238 MG/DL (74-106) Result Diagram: 06/20/17 0650 06/20/17 1050 Microbiology Microbiology Date/Time Source Procedure Growth Status 06/18/17 14:20 Blood Peripheral Aerobic Blood Culture - Preliminary NO GROWTH IN 2 DAYS Resulted 06/18/17 14:20 Blood Peripheral Anaerobic Blood Culture - Preliminary NO GROWTH IN 2 DAYS Resulted 06/18/17 14:10 Blood Peripheral Aerobic Blood Culture - Preliminary NO GROWTH IN 2 DAYS Resulted 06/18/17 14:10 Blood Peripheral Anaerobic Blood Culture - Preliminary NO GROWTH IN 2 DAYS Resulted 06/19/17 04:45 Urine Catheterized Urine Urine Culture - Preliminary NO GROWTH IN 24 HOURS. Resulted Imaging Last Impressions Abdomen/Pelvis CT 06/18/17 1554 Signed Impressions: Service Date/Time: Sunday, June 18, 2017 16:26 - CONCLUSION: Very inhomogeneous liver with what appears to be multiple masses on this unenhanced study. I suspect it is widespread metastatic disease. 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 Jose Barry MD Chest CT 06/18/17 1440 Signed Impressions: Service Date/Time: Sunday, June 18, 2017 16:26 - CONCLUSION: 1. 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 2. Numerous small pulmonary nodules scattered throughout the lungs likely metastatic disease. The nodule in the right middle lobe does abut the visceral pleura and would be amenable to CT-guided biopsy if needed. Jose Barry MD Head CT 06/18/17 1403 Signed Impressions: Service Date/Time: Sunday, June 18, 2017 14:21 - CONCLUSION: 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 No evidence of hemorrhage or edema. No mass or mass effect. Jose Barry MD Chest X-Ray 06/18/17 1403 Signed Impressions: Service Date/Time: Sunday, June 18, 2017 14:19 - CONCLUSION: Soft tissue mass in the AP window and left hilum. Outpatient contrasted chest CT is recommended. Jose Barry MD Patient/Family Conference Present at Family Conference: patient Called son, but has not returned call. Family Conference Time (mins): 45 Family Conference Location: Bedside Issues Discussed: * Palliative care role, purpose, approach * Additional medical, psychosocial, and spiritual history * Patients general health, functional status, and cognitive changes in the months leading up to the current hospitalization * Patient/family understanding of the current medical problems * Patient/family understanding of prognosis * Patients goals of care as best understood from advance directives and/or conversations and/or values * Current medical treatment options and benefits/burdens of those options * Likely scenarios comparing ongoing aggressive care with a transition to comfort measures only * Questions answered to the best of my ability * Palliative care contact information provided Assessment and Plan Disease Oriented Problem List: (1) Altered mental status (2) Elevated liver enzymes (3) Liver mass Symptom Scale: (1) Confusion 0-10 Scale: Unable to quantify Comment: likely multifactorial, hx of stroke. pt is frail. Pertinent Non-Medical Issues Psychosocial: Not able to tell me how many children she has. Currently we have son's contact information. Awaiting call back Its been documented she lives alone Spiritual:[employer] day hind[employer] Legal: awaiting to hear from son to inquire if there are any advance directives Ethical issues impacting care: none. Important Contacts -Talha Clement [phone] Prognosis 81 year old with numerous small pulmonary nodules scattered throughout the lung likely metastatic disease. CT of the abdomen shows multiple masses in the liver. This is due to suspected widespread metastatic disease. Oncology noted that pt has poor performance status and cancer would be difficult to treat even if cancer is confirmed. Code Status: No Code Plan == capacity- appears to have some confusion, and it is not just due to hearing deficits. I do not feel at the current time pt has capacity to make medical decisions and weigh benefits and risk of medical decisions on her own. == medical decision maker. Health Care Surrogate is Fuentes Clement == Goals of care: * Able to meet with son at bedside. Son affirms that pt had told her she does not want chemotherapy. * Son does want to wait for the cultures and workup to know what infections is being treated, before transfering to hospice. * Pt is amenable to hospice consultation and focus on comfort care once infection workup as been addressed or concluded. == Code: Pt will be change to DNR. == symptoms she denies pain, there is confusion- hx of stroke. no need med recommendation at the current time. == Palliative Care will follow to review goals of care assist with managment of symptoms as clinical condition evolves. Thank you for the opportunity to participate in the care of Ms. Clement. Peterson Eagle MD Jun 20, 2017 13:31
[2017-06-20] MEDS: cefTRIAXone INJ 1,000 MG in SODIUM CHLORIDE 0.9% INJ 100 ML IV SCH (13:49)
[2017-06-20] MEDS: INSULIN ASPART SUPPLEMENTAL SCALE SQ SCH ×3 (13:50→21:00)
--- NOTE | 2017-06-20 14:56 | ECHRPT ---
Indication: Essential (primary) hypertension CONCLUSIONS The left ventricular systolic function is normal with an estimated ejection fraction in the range of 55-60%. Wall thickness is normal. Normal left ventricular size. Mild thickening of the mitral valve leaflets. Mild mitral annulus calcification. There is mild to moderate tricuspid valve regurgitation. The estimated pulmonary arterial pressure is 37.5 mmHg. Mild to moderate aortic valve stenosis. Aortic valve area is .90 cm. Aortic valve mean gradient is 13.5 mmHg. BP: 185 / 77 HR: 106 Rhythm: Other MEASUREMENTS (Male / Female) Normal Values Technical Quality:Technically difficult study 2D ECHO LV Diastolic Diameter PLAX 3.4 cm 4.2 - 5.9 / 3.9 - 5.3 cm LV Systolic Diameter PLAX 2.8 cm IVS Diastolic Thickness 0.8 cm 0.6 - 1.0 / 0.6 - 0.9 cm LVPW Diastolic Thickness 0.8 cm 0.6 - 1.0 / 0.6 - 0.9 cm LV Relative Wall Thickness 0.5 LVOT Diameter 1.5 cm M-MODE Aortic Root Diameter MM 2.0 cm LA Systolic Diameter MM 4.5 cm LA Ao Ratio MM 2.3 AV Cusp Separation MM 1.2 cm DOPPLER AV Peak Velocity 225.0 cm/s AV Peak Gradient 20.3 mmHg AV Mean Gradient 13.5 mmHg AV Velocity Time Integral 42.4 cm LVOT Peak Velocity 108.0 cm/s LVOT Peak Gradient 4.7 mmHg AV Area Cont Eq pk 0.8 cm Mitral E Point Velocity 74.5 cm/s Mitral A Point Velocity 129.0 cm/s Mitral E to A Ratio 0.6 LV E' Lateral Velocity 8.1 cm/s Mitral E to LV E' Lateral Ratio 9.2 LV E' Septal Velocity 6.8 cm/s Mitral E to LV E' Septal Ratio 10.9 TR Peak Velocity 262.0 cm/s TR Peak Gradient 27.5 mmHg Right Atrial Pressure 10.0 mmHg Pulmonary Artery Systolic Pressu 37.5 mmHg Right Ventricular Systolic Press 37.5 mmHg PV Peak Velocity 143.0 cm/s PV Peak Gradient 8.2 mmHg FINDINGS LEFT VENTRICLE The left ventricular systolic function is normal with an estimated ejection fraction in the range of 55-60%. Wall thickness is normal. Normal left ventricular size. MITRAL VALVE Mild thickening of the mitral valve leaflets. Mild mitral annulus calcification. AORTIC VALVE Mild to moderate aortic valve stenosis. Aortic valve area is .90 cm. Aortic valve mean gradient is 13.5 mmHg. TRICUSPID VALVE There is mild to moderate tricuspid valve regurgitation. The estimated pulmonary arterial pressure is 37.5 mmHg. Jose Reyez MD, FACC (Electronically Signed) Final Date:20 June 2017 14:55
[2017-06-20] MEDS ORDERED: POTASSIUM CHLORIDE 10 MEQ CONTROLLED RELEASE TAB PO ONE (17:45)
[2017-06-20] MEDS ORDERED: POTASSIUM BICARBONATE 25 MEQ EFFERVESCENT TAB PO ONE (21:15)
[2017-06-20] MEDS: INSULIN DETEMIR 100 UNITS/ML VIAL SQ SCH (22:55)
[2017-06-21] VITALS (8 sets, daily range): BP systolic 103–152; BP diastolic 50–70; PULSE 87–108; RESP 18–21; TEMP 97.2–98.2; O2SAT 93–97
[2017-06-21] MEDS: PILOCARPINE HCL 2% OPHT SOLN 15 ML BTL RIGHT EYE SCH ×4 (01:03→17:00)
[2017-06-21] MEDS: SODIUM CHLOR 0.45% 1000 ML INJ 1,000 ML IV SCH ×2 (01:03→10:21)
[2017-06-21] MEDS: INSULIN ASPART SUPPLEMENTAL SCALE SQ SCH ×4 (08:00→21:28)
[2017-06-21] MEDS: SODIUM CHLORIDE 0.9% FLUSH 10 ML FLUSH IV FLUSH SCH ×2 (08:27→21:00)
[2017-06-21] MEDS: DOCUSATE SODIUM 50 MG/SENNA 8.6 MG TAB PO SCH ×2 (08:28→20:13)
[2017-06-21] MEDS: DORZOLAMIDE/TIMOLOL OPTH SOLN 10 ML BTL RIGHT EYE SCH ×2 (08:29→21:26)
[2017-06-21 08:39] LABS: AUTOMATED NEUTROPHIL # 18.1 TH/MM3 (1.8-7.7); BASOPHIL % 0.1 % (0.0-2.0); EOSINOPHIL % 0.2 % (0.0-4.0); HEMATOCRIT 35.6 % (35.0-46.0); LYMPH % 2.5 % (9.0-44.0); LYMPHOCYTE # 0.5 TH/MM3 (1.0-4.8); MEAN CELL VOLUME 91.9 FL (80.0-100.0); MEAN CORPUSCULAR HEMOGLOBIN 30.1 PG (27.0-34.0); MEAN CORPUSCULAR HGB CONC 32.7 % (32.0-36.0); NEUT % 88.2 % (16.0-70.0); PLATELET COUNT 55 TH/MM3 (150-450); RED BLOOD COUNT 3.87 MIL/MM3 (4.00-5.30); RED CELL DISTRIBUTION WIDTH 14.7 % (11.6-17.2); WHITE BLOOD COUNT 20.5 TH/MM3 (4.0-11.0)
[2017-06-21 08:48] LABS: HEMO FLAGS AUTO DIFF
--- NOTE | 2017-06-21 08:57 | HHI.PR ---
Subjective Remarks This is a pleasant 81 y/o Female with DM II, Right sided stroke, Hypertension, Hyperlipidemia, Hypoacusis, Ton chronic anticoagulation who presented with confusion. multiple falls, Glaucoma, uses Metformin, admitted on 06/18/17 with Diagnosis of Metabolic Encephalopathy had Hypoglycemia, Hypercalcemia, leukocytosis, dehydration, Chest X ray showed pulmonary mass, Multiple pulmonary and Liver nodules with diagnosis of Metastatic Cancer, followed by student specialist, her Son wants full management, had Echocardiogram yesterday. 06/21: seen in her bedroom, no new issues, discussed with nurse Miss Pope no nausea, vomit or diarrhea. awaiting final by Palliative care for discharge, no signs of infection so far, blood cultures negative in three days. on Ceftriaxone. Leukocytosis. not improving with management no BSI. Objective Vital Signs Date Time Temp Pulse Resp B/P (MAP) Pulse Ox O2 Delivery O2 Flow Rate FiO2 06/21/17 05:20 97.6 95 20 103/50 (67) 97 06/21/17 00:11 97.3 108 20 152/70 (97) 97 06/20/17 20:57 98.4 107 20 136/60 (85) 95 06/20/17 19:25 113 06/20/17 16:00 97.7 109 18 138/64 (88) 96 06/20/17 12:00 97.6 109 18 163/91 (115) 98 Manual Cuff/Auscultation I/O 06/20/17 06/20/17 06/20/17 06/21/17 06/21/17 06/21/17 07:00 15:00 23:00 07:00 15:00 23:00 Intake Total 1000 ml Balance 1000 ml IV Total 1000 ml # Voids 3 3 # Bowel Movements 2 Result Diagram: 06/21/17 0705 06/20/17 1050 Imaging Last Impressions Abdomen/Pelvis CT 06/18/17 1554 Signed Impressions: Service Date/Time: Sunday, June 18, 2017 16:26 - CONCLUSION: Very inhomogeneous liver with what appears to be multiple masses on this unenhanced study. I suspect it is widespread metastatic disease. 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 Jose Barry MD Chest CT 06/18/17 1440 Signed Impressions: Service Date/Time: Sunday, June 18, 2017 16:26 - CONCLUSION: 1. 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 2. Numerous small pulmonary nodules scattered throughout the lungs likely metastatic disease. The nodule in the right middle lobe does abut the visceral pleura and would be amenable to CT-guided biopsy if needed. Jose Barry MD Head CT 06/18/17 140 Signed Impressions: Service Date/Time: Sunday, June 18, 2017 14:21 - CONCLUSION: 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 No evidence of hemorrhage or edema. No mass or mass effect. Jose Barry MD Chest X-Ray 06/18/17 140 Signed Impressions: Service Date/Time: Sunday, June 18, 2017 14:19 - CONCLUSION: Soft tissue mass in the AP window and left hilum. Outpatient contrasted chest CT is recommended. Jose Barry MD Procedures None. Other Results Laboratory Tests Test 06/18/17 14:10 06/18/17 14:40 06/19/17 04:45 06/19/17 06:03 Nucleated Red Blood Cells 1 /100 WBC Red Cell Morphology Comment NORMAL Protein Corrected Calcium 12.6 MG/DL Troponin I 0.03 NG/ML B-Hydroxybutyrate 1.00 MMOL/L Prothrombin Time 13.7 SEC Prothromb Time International Ratio 1.2 RATIO Activated Partial Thromboplast Time 22.4 SEC Urine Color YELLOW Urine Turbidity HAZY Urine pH 6.0 Urine Specific [place] 1.014 Urine Protein 100 mg/dL Urine Glucose (UA) 150 mg/dL Urine Ketones NEG mg/dL Urine Occult Blood MOD Urine Nitrite NEG Urine Bilirubin NEG Urine Urobilinogen LESS THAN 2.0 MG/DL Urine Leukocyte Esterase LARGE Urine RBC 70 /hpf Urine WBC /hpf Urine WBC Clumps FEW Urine Squamous Epithelial Cells 8 /hpf Urine Bacteria RARE /hpf Urine Hyaline Casts 2 /lpf Urine Mucus FEW /lpf Microscopic Urinalysis Comment CATH-CULTURE IND Blood Urea Nitrogen 49 MG/DL Creatinine 1.37 MG/DL Random Glucose 132 MG/DL Total Protein 6.2 GM/DL Albumin 3.1 GM/DL Calcium Level 11.5 MG/DL Alkaline Phosphatase 955 U/L Aspartate Amino Transf (AST/SGOT) 212 U/L Alanine Aminotransferase (ALT/SGPT) 144 U/L Total Bilirubin 4.2 MG/DL Direct Bilirubin 3.4 MG/DL Sodium Level 144 MEQ/L Potassium Level 3.7 MEQ/L Chloride Level 110 MEQ/L Carbon Dioxide Level 24.0 MEQ/L Indirect Bilirubin 0.8 MG/DL Test 06/19/17 06:29 06/19/17 10:40 06/20/17 06:50 06/21/17 07:05 Parathyroid Hormone (Intact) 3.2 PG/ML Lactic Acid Level 1.4 mmol/L Differential Total Cells Counted 100 Neutrophils % (Manual) 70 % Band Neutrophils % 11 % Lymphocytes % 7 % Monocytes % 7 % Neutrophils # (Manual) 22.4 TH/MM3 Metamyelocytes 1 % Myelocytes 4 % Toxic Granulation 1+ Toxic Vacuolation PRESENT Platelet Estimate LOW Platelet Morphology Comment NORMAL Estimat Glomerular Filtration Rate 66 ML/MIN White Blood Count 20.5 TH/MM3 Red Blood Count 3.87 MIL/MM3 Hemoglobin 11.6 GM/DL Hematocrit 35.6 % Mean Corpuscular Volume 91.9 FL Mean Corpuscular Hemoglobin 30.1 PG Mean Corpuscular Hemoglobin Concent 32.7 % Red Cell Distribution Width 14.7 % Platelet Count 55 TH/MM3 Mean Platelet Volume 9.4 FL Neutrophils (%) (Auto) 88.2 % Lymphocytes (%) (Auto) 2.5 % Monocytes (%) (Auto) 9.0 % Eosinophils (%) (Auto) 0.2 % Basophils (%) (Auto) 0.1 % Neutrophils # (Auto) 18.1 TH/MM3 Lymphocytes # (Auto) 0.5 TH/MM3 Monocytes # (Auto) 1.9 TH/MM3 Eosinophils # (Auto) 0.0 TH/MM3 Basophils # (Auto) 0.0 TH/MM3 CBC Comment AUTO DIFF Objective Remarks GENERAL: This is a very thin female in no acute distress. SKIN: No rashes, ecchymoses or lesions. Cool and dry. HEAD: Atraumatic. Normocephalic. No temporal or scalp tenderness. EYES: Pupils equal round and reactive. Extraocular motions intact. No scleral icterus. No injection or drainage. ENT: Nose without bleeding, purulent drainage or septal hematoma. Throat without erythema, tonsillar hypertrophy or exudate. Uvula midline. Airway patent. NECK: Trachea midline. No JVD or lymphadenopathy. Supple, nontender, no meningeal signs. CARDIOVASCULAR: Regular rate and rhythm without murmurs, gallops, or rubs. RESPIRATORY: Clear to auscultation. Breath sounds equal bilaterally. No wheezes , rales, or rhonchi. GASTROINTESTINAL: Abdomen soft, non-tender, nondistended. No hepato-splenomegaly , or palpable masses. No guarding. MUSCULOSKELETAL: Extremities without clubbing, cyanosis, or edema. No joint tenderness, effusion, or edema noted. No calf tenderness. Negative Homans sign bilaterally. NEUROLOGICAL: Awake and alert. Slight left facial droop that's normal for her. Motor and sensory grossly within normal limits. Speech is intact. Medications and IVs Current Medications Medications (Trade) Dose Ordered Sig/Wil Route Start Time Stop Time Status Last Admin (D50w (Vial) Inj) 50 ml UNSCH PRN IV PUSH 06/18/17 16:30 (Glucagon Inj) 1 mg UNSCH PRN OTHER 06/18/17 16:30 (NovoLOG SUPPLEMENTAL SCALE) 1 ACHS SLIDING SCALE SQ 06/18/17 17:00 06/20/17 21:00 (NS Flush) 2 ml UNSCH PRN IV FLUSH 06/18/17 16:30 (NS Flush) 2 ml BID IV FLUSH 06/18/17 21:00 (Zofran Inj) 4 mg Q6H PRN IVP 06/18/17 16:30 (Narcan Inj) 0.4 mg UNSCH PRN IV PUSH 06/18/17 16:30 (Eugenia-Colace) 1 tab BID PO 06/18/17 21:00 06/20/17 22:54 (Milk Of Magnesia Liq) 30 ml Q12H PRN PO 06/18/17 16:30 (Senokot) 17.2 mg Q12H PRN PO 06/18/17 16:30 (Dulcolax Supp) 10 mg DAILY PRN RECTAL 06/18/17 16:30 (Lactulose Liq) 30 ml DAILY PRN PO 06/18/17 16:30 Ceftriaxone Sodium 1000 mg/ Sodium Chloride 100 ml @ 200 mls/hr Q24H IV 06/19/17 12:00 06/20/17 13:49 (Norvasc) 10 mg DAILY PO 06/19/17 09:00 06/21/17 08:28 (Cosopt 2-0.5% Opth Soln) 1 drop BID RIGHT EYE 06/18/17 21:00 06/21/17 08:29 (Pilocar 2% Opth Soln) 1 drop Q6HR RIGHT EYE 06/19/17 00:00 06/21/17 06:00 Patient Own Medication PT OWN MED: (Brimonidine Opth .. Q8HR RIGHT EYE 06/18/17 22:00 Future Hold (Heparin Inj) 5,000 units Q12HR SQ 06/18/17 21:00 06/20/17 22:54 (Levemir Inj) 10 units HS SQ 06/18/17 21:00 06/20/17 22:55 Sodium Chloride 1,000 ml @ 84 mls/hr [id number] IV 06/20/17 21:15 06/21/17 01:03 A/P Assessment and Plan 81-year-old female who became in with confusion Metabolic encephalopathy -Labs review significant for hypoglycemia, renal insufficiency, hypercalcemia, leukocytosis. Most likely may be due to combination of dehydration and poss decreased PO intake. -CT scan the brain shows an old right infarct. -Will treat underlying problem. Seems to be improving at the moment. Continue to monitor clinically. -Consult kettle tender , calorie count Hypoglycemia 2/2 decreased PO intake. Not eating BS low started on hypoglycemic protocol. 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 Sepsis vs SIRS probable secondary to UTI. negative Urine culture -Has Leukocytosis not improving with treatment, Elevated white count at 25,000 and tachycardia. Source may be secondary to UTI. -Chest x-ray showed pulmonary mass. -Blood cultures negative in three days. Multiple pulmonary and liver nodules -Found on CT scan. Also bladder wall thickening, probable Metastatic Disease, her son wants her to go to Hospice once cleared her Infection status. Hypercalcemia improved. Uncontrolled DM II - patient hypoglycemic in am. will continue Sliding scale and follow Hypertension controlled continue Home medicines. Hyperlipidemia -Since LFTs elevated will hold statin. History CVA -Patient is not on aspirin. She was most likely on Coumadin due to history CVA but unsure. DVT prophylaxis -Heparin renally dose. Code Status DNR. Discharge Planning Awaiting for final recommendations by Palliative care for discharge. Yoel Mclain MD Jun 21, 2017 8:57 am
[2017-06-21 09:07] LABS: ALT (GPT) 127 U/L (10-53); ANION GAP 10 MEQ/L (5-15); AST (GOT) 235 U/L (15-37); BICARBONATE 22.4 MEQ/L (21.0-32.0); BLOOD UREA NITROGEN 28 MG/DL (7-18); CHLORIDE 111 MEQ/L (98-107); GLOMERULAR FILTRATION RATE 54 ML/MIN (>89); POTASSIUM 3.7 MEQ/L (3.5-5.1); SODIUM (NA) 143 MEQ/L (136-145)
[2017-06-21 09:15] LABS: ALKALINE PHOSPHATASE 707 U/L (45-117); TOTAL BILIRUBIN ADULT 4.3 MG/DL (0.2-1.0)
[2017-06-21 11:30] LABS: BANDS 17 % (0-6); METAMYELOCYTES 1 % (0-1); NEUTROPHIL # MANUAL DIFF 19.3 TH/MM3 (1.8-7.7); PLATELET ESTIMATE SMEAR LOW (NORMAL); PLATELET MORPHOLOGY NORMAL (NORMAL); POLYS (SEG NEUTROPHILS) 76 % (16-70); WBC DIFF SAMPLE 100
[2017-06-21 11:31] LABS: SCAN/DIFF FINAL DIFF MANUAL
[2017-06-21] MEDS: cefTRIAXone INJ 1,000 MG in SODIUM CHLORIDE 0.9% INJ 100 ML IV SCH (12:28)
[2017-06-21] MEDS: HEPARIN SODIUM - SQ 10,000 UNITS/ML VIAL SQ SCH (21:27)
[2017-06-21] MEDS: INSULIN DETEMIR 100 UNITS/ML VIAL SQ SCH (21:27)
[2017-06-22] VITALS (8 sets, daily range): BP systolic 107–153; BP diastolic 56–67; PULSE 90–98; RESP 18–20; TEMP 97.4–98.8; O2SAT 92–96
[2017-06-22] MEDS: SODIUM CHLOR 0.45% 1000 ML INJ 1,000 ML IV SCH ×2 (00:23→09:31)
[2017-06-22] MEDS: PILOCARPINE HCL 2% OPHT SOLN 15 ML BTL RIGHT EYE SCH ×4 (00:23→16:59)
[2017-06-22 04:49] LABS: AUTOMATED NEUTROPHIL # 16.6 TH/MM3 (1.8-7.7); BASOPHIL % 0.1 % (0.0-2.0); EOSINOPHIL # 0.1 TH/MM3 (0-0.4); EOSINOPHIL % 0.6 % (0.0-4.0); LYMPH % 3.1 % (9.0-44.0); LYMPHOCYTE # 0.6 TH/MM3 (1.0-4.8); MEAN CELL VOLUME 90.1 FL (80.0-100.0); MEAN CORPUSCULAR HEMOGLOBIN 30.7 PG (27.0-34.0); MONO % 10.2 % (0.0-8.0); PLATELET COUNT 55 TH/MM3 (150-450); RED BLOOD COUNT 3.77 MIL/MM3 (4.00-5.30); RED CELL DISTRIBUTION WIDTH 14.9 % (11.6-17.2); WHITE BLOOD COUNT 19.3 TH/MM3 (4.0-11.0)
[2017-06-22 04:54] LABS: HEMO FLAGS AUTO DIFF
[2017-06-22 05:50] LABS: BANDS 2 % (0-6); CORRECTED NUCLEATED RBC 1 /100 WBC (0-0); EOSINOPHILS 2 % (0-4); POLYS (SEG NEUTROPHILS) 86 % (16-70); WBC DIFF SAMPLE 100
[2017-06-22 05:51] LABS: PLATELET ESTIMATE SMEAR LOW (NORMAL); PLATELET MORPHOLOGY NORMAL (NORMAL); SCAN/DIFF FINAL DIFF MANUAL; TARGET CELLS 1+ (NORMAL); TOXIC VACUOLATION PRESENT (NONE SEEN)
[2017-06-22] MEDS: INSULIN ASPART SUPPLEMENTAL SCALE SQ SCH ×4 (08:00→21:18)
[2017-06-22] MEDS: SODIUM CHLORIDE 0.9% FLUSH 10 ML FLUSH IV FLUSH SCH ×2 (09:00→21:00)
[2017-06-22] MEDS: DOCUSATE SODIUM 50 MG/SENNA 8.6 MG TAB PO SCH ×2 (09:00→21:00)
[2017-06-22] MEDS: HEPARIN SODIUM - SQ 10,000 UNITS/ML VIAL SQ SCH ×2 (09:00→21:00)
--- NOTE | 2017-06-22 09:19 | HHI.PR ---
Subjective Remarks This is a pleasant 81 y/o Female with DM II, Right sided stroke, Hypertension, Hyperlipidemia, Hypoacusis, Ton chronic anticoagulation who presented with confusion. multiple falls, Glaucoma, uses Metformin, admitted on 06/18/17 with Diagnosis of Metabolic Encephalopathy had Hypoglycemia, Hypercalcemia, leukocytosis, dehydration, Chest X ray showed pulmonary mass, Multiple pulmonary and Liver nodules with diagnosis of Metastatic Cancer, followed by sales enablement specialist, her Son wants full management, had Echocardiogram yesterday. 06/21: seen in her bedroom, no new issues, discussed with nurse Miss Pope no nausea, vomit or diarrhea. awaiting final by Palliative care for discharge, no signs of infection so far, blood cultures negative in three days. on Ceftriaxone. Leukocytosis. not improving with management no BSI. 06/22: Seen in the room in the presence of Speech therapy, no nausea, vomit or diarrhea, eating mechanical soft diet. 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 Objective Vital Signs Date Time Temp Pulse Resp B/P (MAP) Pulse Ox O2 Delivery O2 Flow Rate FiO2 06/22/17 08:00 97.9 96 20 119/60 (79) 96 06/22/17 05:36 98.2 92 18 124/56 (78) 92 06/22/17 01:50 98.8 98 18 129/60 (83) 95 06/21/17 21:25 97.4 104 18 104/55 (71) 93 06/21/17 20:00 87 06/21/17 16:00 97.9 98 21 127/60 (82) 96 06/21/17 12:00 98.2 96 21 125/59 (81) 97 I/O 06/21/17 06/21/17 06/21/17 06/22/17 06/22/17 06/22/17 07:00 15:00 23:00 07:00 15:00 23:00 Intake Total 100 ml 1463 ml 652 ml Balance 100 ml 1463 ml 652 ml Intake Oral 600 ml IV Total 100 ml 863 ml 652 ml # Voids 3 5 # Bowel Movements 2 4 Result Diagram: 06/22/1741906/22/17419 Imaging Last Impressions Abdomen/Pelvis CT 06/18/17 9880 Signed Impressions: Service Date/Time: Sunday, June 18, 2017 16:26 - CONCLUSION: Very inhomogeneous liver with what appears to be multiple masses on this unenhanced study. I suspect it is widespread metastatic disease. 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 Jose Barry MD Chest CT 06/18/17 1440 Signed Impressions: Service Date/Time: Sunday, June 18, 2017 16:26 - CONCLUSION: 1. 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 2. Numerous small pulmonary nodules scattered throughout the lungs likely metastatic disease. The nodule in the right middle lobe does abut the visceral pleura and would be amenable to CT-guided biopsy if needed. Jose Barry MD Head CT 06/18/17 1403 Signed Impressions: Service Date/Time: Sunday, June 18, 2017 14:21 - CONCLUSION: 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 No evidence of hemorrhage or edema. No mass or mass effect. Jose Barry MD Chest X-Ray 06/18/17 1403 Signed Impressions: Service Date/Time: Sunday, June 18, 2017 14:19 - CONCLUSION: Soft tissue mass in the AP window and left hilum. Outpatient contrasted chest CT is recommended. Jose Barry MD Procedures None. Other Results Laboratory Tests Test 06/18/17 14:10 06/18/17 14:40 06/19/17 04:45 06/19/17 06:03 Protein Corrected Calcium 12.6 MG/DL Troponin I 0.03 NG/ML B-Hydroxybutyrate 1.00 MMOL/L Prothrombin Time 13.7 SEC Prothromb Time International Ratio 1.2 RATIO Activated Partial Thromboplast Time 22.4 SEC Urine Color YELLOW Urine Turbidity HAZY Urine pH 6.0 Urine Specific [place] 1.014 Urine Protein 100 mg/dL Urine Glucose (UA) 150 mg/dL Urine Ketones NEG mg/dL Urine Occult Blood MOD Urine Nitrite NEG Urine Bilirubin NEG Urine Urobilinogen LESS THAN 2.0 MG/DL Urine Leukocyte Esterase LARGE Urine RBC 70 /hpf Urine WBC /hpf Urine WBC Clumps FEW Urine Squamous Epithelial Cells 8 /hpf Urine Bacteria RARE /hpf Urine Hyaline Casts 2 /lpf Urine Mucus FEW /lpf Microscopic Urinalysis Comment CATH-CULTURE IND Blood Urea Nitrogen 49 MG/DL Creatinine 1.37 MG/DL Random Glucose 132 MG/DL Total Protein 6.2 GM/DL Albumin 3.1 GM/DL Calcium Level 11.5 MG/DL Alkaline Phosphatase 955 U/L Aspartate Amino Transf (AST/SGOT) 212 U/L Alanine Aminotransferase (ALT/SGPT) 144 U/L Total Bilirubin 4.2 MG/DL Direct Bilirubin 3.4 MG/DL Sodium Level 144 MEQ/L Potassium Level 3.7 MEQ/L Chloride Level 110 MEQ/L Carbon Dioxide Level 24.0 MEQ/L Indirect Bilirubin 0.8 MG/DL Test 06/19/17 06:29 06/19/17 10:40 06/20/17 06:50 06/21/17 07:05 Parathyroid Hormone (Intact) 3.2 PG/ML Lactic Acid Level 1.4 mmol/L Myelocytes 4 % Toxic Granulation 1+ Metamyelocytes 1 % Red Cell Morphology Comment NORMAL Blood Urea Nitrogen 28 MG/DL Creatinine 0.99 MG/DL Random Glucose 85 MG/DL Total Protein 5.1 GM/DL Albumin 2.2 GM/DL Calcium Level 8.2 MG/DL Alkaline Phosphatase 707 U/L Aspartate Amino Transf (AST/SGOT) 235 U/L Alanine Aminotransferase (ALT/SGPT) 127 U/L Total Bilirubin 4.3 MG/DL Sodium Level 143 MEQ/L Potassium Level 3.7 MEQ/L Chloride Level 111 MEQ/L Carbon Dioxide Level 22.4 MEQ/L Anion Gap 10 MEQ/L Estimat Glomerular Filtration Rate 54 ML/MIN Test 06/22/17 04:20 White Blood Count 19.3 TH/MM3 Red Blood Count 3.77 MIL/MM3 Hemoglobin 11.6 GM/DL Hematocrit 34.0 % Mean Corpuscular Volume 90.1 FL Mean Corpuscular Hemoglobin 30.7 PG Mean Corpuscular Hemoglobin Concent 34.0 % Red Cell Distribution Width 14.9 % Platelet Count 55 TH/MM3 Mean Platelet Volume 9.4 FL Neutrophils (%) (Auto) 86.0 % Lymphocytes (%) (Auto) 3.1 % Monocytes (%) (Auto) 10.2 % Eosinophils (%) (Auto) 0.6 % Basophils (%) (Auto) 0.1 % Neutrophils # (Auto) 16.6 TH/MM3 Lymphocytes # (Auto) 0.6 TH/MM3 Monocytes # (Auto) 2.0 TH/MM3 Eosinophils # (Auto) 0.1 TH/MM3 Basophils # (Auto) 0.0 TH/MM3 CBC Comment AUTO DIFF Differential Total Cells Counted 100 Neutrophils % (Manual) 86 % Band Neutrophils % 2 % Lymphocytes % 1 % Monocytes % 9 % Eosinophils % 2 % Neutrophils # (Manual) 17.0 TH/MM3 Nucleated Red Blood Cells 1 /100 WBC Differential Comment FINAL DIFF MANUAL Toxic Vacuolation PRESENT Platelet Estimate LOW Platelet Morphology Comment NORMAL Target Cells 1+ Random Glucose 46 MG/DL Objective Remarks GENERAL: No acute distress. SKIN: Ecchymosis on arms. HEAD: Atraumatic. Normocephalic. No temporal or scalp tenderness. NECK: Supple, no JVD, no Lymphadenopathy. CARDIOVASCULAR: Regular rate and rhythm without murmurs, gallops, or rubs. RESPIRATORY: Clear to auscultation. GASTROINTESTINAL: Abdomen soft, non-tender, nondistended. MUSCULOSKELETAL: Extremities without clubbing, cyanosis, or edema. NEUROLOGICAL: Awake and alert. Slight left facial droop that's normal for her. Motor and sensory grossly within normal limits. Speech is intact. Medications and IVs Current Medications Medications (Trade) Dose Ordered Sig/Wil Route Start Time Stop Time Status Last Admin (D50w (Vial) Inj) 50 ml UNSCH PRN IV PUSH 06/18/17 16:30 06/22/17 04:24 (Glucagon Inj) 1 mg UNSCH PRN OTHER 06/18/17 16:30 (NovoLOG SUPPLEMENTAL SCALE) 1 ACHS SLIDING SCALE SQ 06/18/17 17:00 06/21/17 21:28 (NS Flush) 2 ml UNSCH PRN IV FLUSH 06/18/17 16:30 (NS Flush) 2 ml BID IV FLUSH 06/18/17 21:00 (Zofran Inj) 4 mg Q6H PRN IVP 06/18/17 16:30 06/21/17 17:00 (Narcan Inj) 0.4 mg UNSCH PRN IV PUSH 06/18/17 16:30 (Eugenia-Colace) 1 tab BID PO 06/18/17 21:00 06/20/17 22:54 (Milk Of Magnesia Liq) 30 ml Q12H PRN PO 06/18/17 16:30 (Senokot) 17.2 mg Q12H PRN PO 06/18/17 16:30 (Dulcolax Supp) 10 mg DAILY PRN RECTAL 06/18/17 16:30 (Lactulose Liq) 30 ml DAILY PRN PO 06/18/17 16:30 Ceftriaxone Sodium 1000 mg/ Sodium Chloride 100 ml @ 200 mls/hr Q24H IV 06/19/17 12:00 06/21/17 12:28 (Norvasc) 10 mg DAILY PO 06/19/17 09:00 06/21/17 08:28 (Cosopt 2-0.5% Opth Soln) 1 drop BID RIGHT EYE 06/18/17 21:00 06/21/17 21:26 (Pilocar 2% Opth Soln) 1 drop Q6HR RIGHT EYE 06/19/17 00:00 06/22/17 06:18 Patient Own Medication PT OWN MED: (Brimonidine Opth Dr... Q8HR RIGHT EYE 06/18/17 22:00 Future Hold (Heparin Inj) 5,000 units Q12HR SQ 06/18/17 21:00 06/21/17 21:27 (Levemir Inj) 10 units HS SQ 06/18/17 21:00 06/21/17 21:27 Sodium Chloride 1,000 ml @ 84 mls/hr [id number] IV 06/20/17 21:15 06/22/17 00:23 A/P Assessment and Plan 81-year-old female who became in with confusion Metabolic encephalopathy Improving. -CT scan the brain shows an old right infarct. re started her General Diet to improve intake. -Consult telephone recorder , calorie count Hypoglycemia 2/2 decreased PO intake. Not eating BS low started on hypoglycemic protocol. at this time eating with Speech Therapy, had hypoglycemia in am removed Long lasting insulin. SIRS probable secondary to UTI. -probable her Leukocytosis related to basal pathology, all cultures are negative. Multiple pulmonary and liver nodules -Found on CT scan. Also bladder wall thickening, probable Metastatic Disease, patient with right treatment for UTI continue present care and discharge on by mouth antibiotics. Hypercalcemia improved. DM II - discontinued long lasting Insulin, sliding scale continue at this time eating better. Hypertension controlled continue Home medicines. Hyperlipidemia -Since LFTs elevated will hold statin. History CVA -Patient is not on aspirin. She was most likely on Coumadin due to history CVA but unsure. DVT prophylaxis -Heparin renally dose. Code Status DNR. Discharge Planning Discharge to Hospice once bed available. Yoel Mclain MD Jun 22, 2017 09:19
[2017-06-22] MEDS: DORZOLAMIDE/TIMOLOL OPTH SOLN 10 ML BTL RIGHT EYE SCH ×2 (09:20→21:18)
[2017-06-22] MEDS: FAMOTIDINE 20 MG/2 ML VIAL IV PUSH SCH ×2 (09:33→21:17)
[2017-06-22] MEDS: cefTRIAXone INJ 1,000 MG in SODIUM CHLORIDE 0.9% INJ 100 ML IV SCH (12:40)
[2017-06-22] MEDS: ACETAMINOPHEN 325 MG TAB PO PRN (15:33)
[2017-06-22 16:59] LABS: ALKALINE PHOSPHATASE 873 U/L (45-117); ALT (GPT) 161 U/L (10-53); ANION GAP 8 MEQ/L (5-15); AST (GOT) 310 U/L (15-37); BICARBONATE 22.2 MEQ/L (21.0-32.0); BLOOD UREA NITROGEN 27 MG/DL (7-18); CHLORIDE 104 MEQ/L (98-107); GLOMERULAR FILTRATION RATE 57 ML/MIN (>89); POTASSIUM 4.3 MEQ/L (3.5-5.1); SODIUM (NA) 134 MEQ/L (136-145)
[2017-06-23] VITALS (7 sets, daily range): BP systolic 118–140; BP diastolic 56–71; PULSE 84–100; RESP 16–20; TEMP 97.4–98.1; O2SAT 92–99
[2017-06-23] MEDS: SODIUM CHLOR 0.45% 1000 ML INJ 1,000 ML IV SCH ×3 (00:19→20:45)
[2017-06-23] MEDS: PILOCARPINE HCL 2% OPHT SOLN 15 ML BTL RIGHT EYE SCH ×4 (00:20→17:42)
[2017-06-23] MEDS: ACETAMINOPHEN 325 MG TAB PO PRN ×2 (00:22→17:44)
[2017-06-23] MEDS: INSULIN ASPART SUPPLEMENTAL SCALE SQ SCH ×4 (08:54→21:00)
[2017-06-23] MEDS: DOCUSATE SODIUM 50 MG/SENNA 8.6 MG TAB PO SCH ×2 (09:00→20:43)
[2017-06-23] MEDS: SODIUM CHLORIDE 0.9% FLUSH 10 ML FLUSH IV FLUSH SCH ×2 (09:00→20:45)
[2017-06-23] MEDS: DORZOLAMIDE/TIMOLOL OPTH SOLN 10 ML BTL RIGHT EYE SCH ×2 (09:00→20:45)
[2017-06-23] MEDS: FAMOTIDINE 20 MG/2 ML VIAL IV PUSH SCH ×2 (09:35→20:44)
[2017-06-23] MEDS: HEPARIN SODIUM - SQ 10,000 UNITS/ML VIAL SQ SCH ×2 (09:37→20:44)
--- NOTE | 2017-06-23 09:39 | HHI.PR ---
Subjective Remarks This is a pleasant 81 y/o Female with DM II, Right sided stroke, Hypertension, Hyperlipidemia, Hypoacusis, Ton chronic anticoagulation who presented with confusion. multiple falls, Glaucoma, uses Metformin, admitted on 06/18/17 with Diagnosis of Metabolic Encephalopathy had Hypoglycemia, Hypercalcemia, leukocytosis, dehydration, Chest X ray showed pulmonary mass, Multiple pulmonary and Liver nodules with diagnosis of Metastatic Cancer, followed by content management specialist, her Son wants full management, had Echocardiogram yesterday. 06/21: seen in her bedroom, no new issues, discussed with nurse Miss Pope no nausea, vomit or diarrhea. awaiting final by Palliative care for discharge, no signs of infection so far, blood cultures negative in three days. on Ceftriaxone. Leukocytosis. not improving with management no BSI. 06/22: Seen in the room in the presence of Speech therapy, no nausea, vomit or diarrhea, eating mechanical soft diet. PROFESSOR OF VOICE Miss Stiles discussed with her Son and accepted to transfer to Hospice care later today if possible. 06/23: Seen in her bedroom at this time Oncology in to see patient, discussed with nurse Mr. Joseph and with Oncology Specialist awaiting final by Hospice nurse they have a meeting with her son this afternoon, no nausea, vomit or diarrhea. Objective Vital Signs Date Time Temp Pulse Resp B/P (MAP) Pulse Ox O2 Delivery O2 Flow Rate FiO2 06/23/17 07:37 97.9 97 18 129/64 (85) 94 06/23/17 04:00 97.8 84 16 118/56 (76) 93 06/23/17 00:00 97.4 95 16 126/60 (82) 94 06/22/17 20:50 97.9 96 18 107/57 (74) 95 06/22/17 20:00 90 06/22/17 16:00 98.0 96 20 145/64 (91) 93 06/22/17 12:00 97.4 93 20 153/67 (95) 93 06/22/17 10:20 95 I/O 06/22/17 06/22/17 06/22/17 06/23/17 06/23/17 06/23/17 07:00 15:00 23:00 07:00 15:00 23:00 Intake Total 652 ml 455 ml 1476 ml 1205 ml Balance 652 ml 455 ml 1476 ml 1205 ml Intake Oral 720 ml 570 ml IV Total 652 ml 455 ml 756 ml 635 ml # Voids 5 8 # Bowel Movements 4 3 Result Diagram: 06/22/17 0420 06/22/17 1537 Imaging Last Impressions Abdomen/Pelvis CT 06/18/17 1554 Signed Impressions: Service Date/Time: Sunday, June 18, 2017 16:26 - CONCLUSION: Very inhomogeneous liver with what appears to be multiple masses on this unenhanced study. I suspect it is widespread metastatic disease. 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 Jose Barry MD Chest CT 06/18/17 1440 Signed Impressions: Service Date/Time: Sunday, June 18, 2017 16:26 - CONCLUSION: 1. 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 2. Numerous small pulmonary nodules scattered throughout the lungs likely metastatic disease. The nodule in the right middle lobe does abut the visceral pleura and would be amenable to CT-guided biopsy if needed. Jose Barry MD Head CT 06/18/17 1403 Signed Impressions: Service Date/Time: Sunday, June 18, 2017 14:21 - CONCLUSION: 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 No evidence of hemorrhage or edema. No mass or mass effect. Jose Barry MD Chest X-Ray 06/18/17 1403 Signed Impressions: Service Date/Time: Sunday, June 18, 2017 14:19 - CONCLUSION: Soft tissue mass in the AP window and left hilum. Outpatient contrasted chest CT is recommended. Jose Barry MD Procedures None. Other Results Laboratory Tests Test 06/18/17 14:10 06/18/17 14:40 06/19/17 04:45 06/19/17 06:03 Protein Corrected Calcium 12.6 MG/DL Troponin I 0.03 NG/ML B-Hydroxybutyrate 1.00 MMOL/L Prothrombin Time 13.7 SEC Prothromb Time International Ratio 1.2 RATIO Activated Partial Thromboplast Time 22.4 SEC Urine Color YELLOW Urine Turbidity HAZY Urine pH 6.0 Urine Specific [place] 1.014 Urine Protein 100 mg/dL Urine Glucose (UA) 150 mg/dL Urine Ketones NEG mg/dL Urine Occult Blood MOD Urine Nitrite NEG Urine Bilirubin NEG Urine Urobilinogen LESS THAN 2.0 MG/DL Urine Leukocyte Esterase LARGE Urine RBC 70 /hpf Urine WBC /hpf Urine WBC Clumps FEW Urine Squamous Epithelial Cells 8 /hpf Urine Bacteria RARE /hpf Urine Hyaline Casts 2 /lpf Urine Mucus FEW /lpf Microscopic Urinalysis Comment CATH-CULTURE IND Blood Urea Nitrogen 49 MG/DL Creatinine 1.37 MG/DL Random Glucose 132 MG/DL Total Protein 6.2 GM/DL Albumin 3.1 GM/DL Calcium Level 11.5 MG/DL Alkaline Phosphatase 955 U/L Aspartate Amino Transf (AST/SGOT) 212 U/L Alanine Aminotransferase (ALT/SGPT) 144 U/L Total Bilirubin 4.2 MG/DL Direct Bilirubin 3.4 MG/DL Sodium Level 144 MEQ/L Potassium Level 3.7 MEQ/L Chloride Level 110 MEQ/L Carbon Dioxide Level 24.0 MEQ/L Indirect Bilirubin 0.8 MG/DL Test 06/19/17 06:29 06/19/17 10:40 06/20/17 06:50 06/21/17 07:05 Parathyroid Hormone (Intact) 3.2 PG/ML Lactic Acid Level 1.4 mmol/L Myelocytes 4 % Toxic Granulation 1+ Metamyelocytes 1 % Red Cell Morphology Comment NORMAL Test 06/22/17 04:20 06/22/17 15:37 White Blood Count 19.3 TH/MM3 Red Blood Count 3.77 MIL/MM3 Hemoglobin 11.6 GM/DL Hematocrit 34.0 % Mean Corpuscular Volume 90.1 FL Mean Corpuscular Hemoglobin 30.7 PG Mean Corpuscular Hemoglobin Concent 34.0 % Red Cell Distribution Width 14.9 % Platelet Count 55 TH/MM3 Mean Platelet Volume 9.4 FL Neutrophils (%) (Auto) 86.0 % Lymphocytes (%) (Auto) 3.1 % Monocytes (%) (Auto) 10.2 % Eosinophils (%) (Auto) 0.6 % Basophils (%) (Auto) 0.1 % Neutrophils # (Auto) 16.6 TH/MM3 Lymphocytes # (Auto) 0.6 TH/MM3 Monocytes # (Auto) 2.0 TH/MM3 Eosinophils # (Auto) 0.1 TH/MM3 Basophils # (Auto) 0.0 TH/MM3 CBC Comment AUTO DIFF Differential Total Cells Counted 100 Neutrophils % (Manual) 86 % Band Neutrophils % 2 % Lymphocytes % 1 % Monocytes % 9 % Eosinophils % 2 % Neutrophils # (Manual) 17.0 TH/MM3 Nucleated Red Blood Cells 1 /100 WBC Differential Comment FINAL DIFF MANUAL Toxic Vacuolation PRESENT Platelet Estimate LOW Platelet Morphology Comment NORMAL Target Cells 1+ Blood Urea Nitrogen 27 MG/DL Creatinine 0.94 MG/DL Random Glucose 211 MG/DL Total Protein 4.8 GM/DL Albumin 2.0 GM/DL Calcium Level 7.8 MG/DL Alkaline Phosphatase 873 U/L Aspartate Amino Transf (AST/SGOT) 310 U/L Alanine Aminotransferase (ALT/SGPT) 161 U/L Total Bilirubin 6.0 MG/DL Sodium Level 134 MEQ/L Potassium Level 4.3 MEQ/L Chloride Level 104 MEQ/L Carbon Dioxide Level 22.2 MEQ/L Anion Gap 8 MEQ/L Estimat Glomerular Filtration Rate 57 ML/MIN Objective Remarks GENERAL: No acute distress. SKIN: Ecchymosis on arms. HEAD: Atraumatic. Normocephalic. No temporal or scalp tenderness. NECK: Supple, no JVD, no Lymphadenopathy. CARDIOVASCULAR: Regular rate and rhythm without murmurs, gallops, or rubs. RESPIRATORY: Clear to auscultation. GASTROINTESTINAL: Abdomen soft, non-tender, nondistended. MUSCULOSKELETAL: Extremities without clubbing, cyanosis, or edema. NEUROLOGICAL: Awake and alert. Slight left facial droop that's normal for her. Medications and IVs Current Medications Medications (Trade) Dose Ordered Sig/Wil Route Start Time Stop Time Status Last Admin (D50w (Vial) Inj) 50 ml UNSCH PRN IV PUSH 06/18/17 16:30 06/22/17 04:24 (Glucagon Inj) 1 mg UNSCH PRN OTHER 06/18/17 16:30 (NS Flush) 2 ml UNSCH PRN IV FLUSH 06/18/17 16:30 (NS Flush) 2 ml BID IV FLUSH 06/18/17 21:00 (Zofran Inj) 4 mg Q6H PRN IVP 06/18/17 16:30 06/21/17 17:00 (Narcan Inj) 0.4 mg UNSCH PRN IV PUSH 06/18/17 16:30 (Eugenia-Colace) 1 tab BID PO 06/18/17 21:00 06/20/17 22:54 (Milk Of Magnesia Liq) 30 ml Q12H PRN PO 06/18/17 16:30 (Senokot) 17.2 mg Q12H PRN PO 06/18/17 16:30 (Dulcolax Supp) 10 mg DAILY PRN RECTAL 06/18/17 16:30 (Lactulose Liq) 30 ml DAILY PRN PO 06/18/17 16:30 Ceftriaxone Sodium 1000 mg/ Sodium Chloride 100 ml @ 200 mls/hr Q24H IV 06/19/17 12:00 06/22/17 12:40 (Norvasc) 10 mg DAILY PO 06/19/17 09:00 06/22/17 09:21 (Cosopt 2-0.5% Opth Soln) 1 drop BID RIGHT EYE 06/18/17 21:00 06/22/17 21:18 (Pilocar 2% Opth Soln) 1 drop Q6HR RIGHT EYE 06/19/17 00:00 06/23/17 04:55 Patient Own Medication PT OWN MED: (Brimonidine Opth .. Q8HR RIGHT EYE 06/18/17 22:00 Future Hold (Heparin Inj) 5,000 units Q12HR SQ 06/18/17 21:00 06/21/17 21:27 Sodium Chloride 1,000 ml @ 84 mls/hr [id number] IV 06/20/17 21:15 06/23/17 00:19 (NovoLOG SUPPLEMENTAL SCALE) 1 ACHS SLIDING SCALE SQ 06/22/17 12:00 06/23/17 08:54 (Pepcid Inj) 20 mg Q12HR IV PUSH 06/22/17 09:30 06/22/17 21:17 (Tylenol) 650 mg Q4H PRN PO 06/22/17 16:00 06/23/17 00:22 A/P Assessment and Plan 81-year-old female who became in with confusion Metabolic encephalopathy Improving. -CT scan the brain shows an old right infarct. re started her General Diet to improve intake. -Consult 3rd grade teacher , calorie count Hypoglycemia 2/2 decreased PO intake. Not eating BS low started on hypoglycemic protocol. at this time eating with Speech Therapy, had hypoglycemia in am removed Long lasting insulin. SIRS probable secondary to UTI. -probable her Leukocytosis related to basal pathology, all cultures are negative. Multiple pulmonary and liver nodules -Found on CT scan. Also bladder wall thickening, probable Metastatic Disease, patient with right treatment for UTI continue present care and discharge on by mouth antibiotics. Hypercalcemia improved. DM II - discontinued long lasting Insulin, sliding scale continue at this time eating better. Hypertension controlled continue Home medicines. Hyperlipidemia -Since LFTs elevated will hold statin. History CVA -Patient is not on aspirin. She was most likely on Coumadin due to history CVA but unsure. DVT prophylaxis -Heparin renally dose. Code Status DNR. Discharge Planning Discharge to Hospice once bed available. Yoel Mclain MD Jun 23, 2017 09:39
--- NOTE | 2017-06-23 11:48 | PD.ONC.PN ---
Subjective Subjective Remarks Afebrile overnight. Patient resting in bed. Waiting placement for hospice. Denies pain at present. Objective Data Date Time Temp Pulse Resp B/P (MAP) Pulse Ox O2 Delivery O2 Flow Rate FiO2 06/23/17 07:37 97.9 97 18 129/64 (85) 94 06/23/17 04:00 97.8 84 16 118/56 (76) 93 06/23/17 00:00 97.4 95 16 126/60 (82) 94 06/22/17 20:50 97.9 96 18 107/57 (74) 95 06/22/17 20:00 90 06/22/17 16:00 98.0 96 20 145/64 (91) 93 06/22/17 12:00 97.4 93 20 153/67 (95) 93 06/23/17 06/23/17 06/23/17 07:00 15:00 23:00 Intake Total 1205 ml Balance 1205 ml Result Diagram: 06/22/17 0420 06/22/17 1537 Laboratory Results Laboratory Tests Test 06/22/17 15:37 Blood Urea Nitrogen 27 MG/DL Creatinine 0.94 MG/DL Random Glucose 211 MG/DL Total Protein 4.8 GM/DL Albumin 2.0 GM/DL Calcium Level 7.8 MG/DL Alkaline Phosphatase 873 U/L Aspartate Amino Transf (AST/SGOT) 310 U/L Alanine Aminotransferase (ALT/SGPT) 161 U/L Total Bilirubin 6.0 MG/DL Sodium Level 134 MEQ/L Potassium Level 4.3 MEQ/L Chloride Level 104 MEQ/L Carbon Dioxide Level 22.2 MEQ/L Anion Gap 8 MEQ/L Estimat Glomerular Filtration Rate 57 ML/MIN Administered Medications Medications (Trade) Dose Ordered Sig/Wil Route PRN Reason Start Time Stop Time Status Last Admin Dose Admin Dextrose (D50w (Vial) Inj) 50 ml UNSCH PRN IV PUSH HYPOGLYCEMIA-SEE COMMENTS 06/18/17 16:30 06/22/17 04:24 Ondansetron HCl (Zofran Inj) 4 mg Q6H PRN IVP NAUSEA OR VOMITING 06/18/17 16:30 06/21/17 17:00 Senna/Docusate Sodium (Eugenia-Colace) 1 tab BID PO 06/18/17 21:00 06/20/17 22:54 Ceftriaxone Sodium 1000 mg/ Sodium Chloride 100 ml @ 200 mls/hr Q24H IV 06/19/17 12:00 06/22/17 12:40 Amlodipine Besylate (Norvasc) 10 mg DAILY PO 06/19/17 09:00 06/23/17 09:38 Dorzolamide/ Timolol (Cosopt 2-0.5% Opth Soln) 1 drop BID RIGHT EYE 06/18/17 21:00 06/22/17 21:18 Pilocarpine HCl (Pilocar 2% Opth Soln) 1 drop Q6HR RIGHT EYE 06/19/17 00:00 06/23/17 04:55 Heparin Sodium (Porcine) (Heparin Inj) 5,000 units Q12HR SQ 06/18/17 21:00 06/23/17 09:37 Sodium Chloride 1,000 ml @ 84 mls/hr [id number] IV 06/20/17 21:15 06/23/17 00:19 Insulin Aspart (NovoLOG SUPPLEMENTAL SCALE) 1 ACHS SLIDING SCALE SQ 06/22/17 12:00 06/23/17 08:54 Famotidine (Pepcid Inj) 20 mg Q12HR IV PUSH 06/22/17 09:30 06/23/17 09:35 Acetaminophen (Tylenol) 650 mg Q4H PRN PO PAIN SCALE 1 TO 5 06/22/17 16:00 06/23/17 00:22 Objective Remarks GENERAL: Pleasant elderly female lying in bed in nad. SKIN: Warm and dry. HEAD: Normocephalic. EYES: No injection or drainage. NECK: Supple, trachea midline. CARDIOVASCULAR: +S1/S2 RESPIRATORY: anterior rodriguez clear. GASTROINTESTINAL: Abdomen soft, non-tender, nondistended. EXTREMITIES: No cyanosis NEUROLOGICAL: awake and alert, normal speech. Assessment/Plan Problem List: (1) Liver mass ICD Codes: R16.0 - Hepatomegaly, not elsewhere classified Plan: --family/patient not desirous of treatment/workup. -- Multiple liver and lung lesions noted on CT. -- These appear consistent with metastatic disease Hx/Workup: The pt was apparently living independently but over the past week or so has had frequent falls and confusion. Assessment 81 y/o female admitted with confusion and falls found to have multiple lesions in lung and liver that appear to be metastatic disease Plan 1. continue supportive care. 2. ok to d/c to hospice if desired by patient/family. Attending Statement The exam, history, and the medical decision-making described in the above note were completed with the assistance of the mid-level provider. I reviewed and agree with the findings presented. I attest that I had a [id number] encounter with the patient on the same day, and personally performed and documented my assessment and findings in the medical record Adri Chadwick Jun 23, 2017 11:48 David Jarvis MD Jun 26, 2017 22:57
[2017-06-23] MEDS: cefTRIAXone INJ 1,000 MG in SODIUM CHLORIDE 0.9% INJ 100 ML IV SCH (12:17)
[2017-06-24] VITALS (7 sets, daily range): BP systolic 119–165; BP diastolic 58–104; PULSE 95–109; RESP 18–20; TEMP 97.4–97.8; O2SAT 95–97
[2017-06-24] MEDS: SODIUM CHLOR 0.45% 1000 ML INJ 1,000 ML IV SCH ×2 (00:09→20:54)
[2017-06-24] MEDS: PILOCARPINE HCL 2% OPHT SOLN 15 ML BTL RIGHT EYE SCH ×6 (00:12→20:38)
[2017-06-24] MEDS: ACETAMINOPHEN 325 MG TAB PO PRN ×2 (05:43→20:36)
[2017-06-24] MEDS: SODIUM CHLORIDE 0.9% FLUSH 10 ML FLUSH IV FLUSH SCH ×2 (09:00→21:00)
[2017-06-24] MEDS: DOCUSATE SODIUM 50 MG/SENNA 8.6 MG TAB PO SCH ×2 (09:00→20:36)
--- NOTE | 2017-06-24 09:34 | HHI.PR ---
Subjective Remarks This is a pleasant 81 y/o Female with DM II, Right sided stroke, Hypertension, Hyperlipidemia, Hypoacusis, Ton chronic anticoagulation who presented with confusion. multiple falls, Glaucoma, uses Metformin, admitted on 06/18/17 with Diagnosis of Metabolic Encephalopathy had Hypoglycemia, Hypercalcemia, leukocytosis, dehydration, Chest X ray showed pulmonary mass, Multiple pulmonary and Liver nodules with diagnosis of Metastatic Cancer, followed by analytics specialist, her Son wants full management, had Echocardiogram yesterday. 06/21: seen in her bedroom, no new issues, discussed with nurse Miss Pope no nausea, vomit or diarrhea. awaiting final by Palliative care for discharge, no signs of infection so far, blood cultures negative in three days. on Ceftriaxone. Leukocytosis. not improving with management no BSI. 06/22: Seen in the room in the presence of Speech therapy, no nausea, vomit or diarrhea, eating mechanical soft diet. MIDDLE SCHOOL TECHNOLOGY TEACHER Miss Stiles discussed with her Son and accepted to transfer to Hospice care later today if possible. 06/23: Seen in her bedroom at this time Oncology in to see patient, discussed with nurse Mr. Joseph and with [facility] awaiting final by Hospice nurse they have a meeting with her son this afternoon. 06/24: discussed with patient in the room, no changes, waiting for Hospice placement, discussed with [facility] and her Son has to pay out of pocket her SNF placement. no nausea, vomit or diarrhea. Objective Vital Signs Date Time Temp Pulse Resp B/P (MAP) Pulse Ox O2 Delivery O2 Flow Rate FiO2 06/24/17 07:33 97.5 107 19 129/73 (91) 97 06/24/17 04:00 97.6 95 20 142/68 (92) 97 06/24/17 00:00 97.5 101 20 145/104 (118) 97 06/23/17 20:00 100 06/23/17 20:00 98.1 98 20 140/63 (88) 99 06/23/17 15:53 97.7 86 18 122/71 (88) 95 06/23/17 11:53 97.6 96 18 134/62 (86) 92 I/O 06/23/17 06/23/17 06/23/17 06/24/17 06/24/17 06/24/17 07:00 15:00 23:00 07:00 15:00 23:00 Intake Total 1205 ml 480 ml 1997 ml Balance 1205 ml 480 ml 1997 ml Intake Oral 570 ml 480 ml IV Total 635 ml 1997 ml # Voids 8 3 2 2 # Bowel Movements 3 3 3 Result Diagram: 06/22/17 0420 06/22/17 1537 Imaging Last Impressions Abdomen/Pelvis CT 06/18/17 1554 Signed Impressions: Service Date/Time: Sunday, June 18, 2017 16:26 - CONCLUSION: Very inhomogeneous liver with what appears to be multiple masses on this unenhanced study. I suspect it is widespread metastatic disease. 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 Jose Barry MD Chest CT 06/18/17 1440 Signed Impressions: Service Date/Time: Sunday, June 18, 2017 16:26 - CONCLUSION: 1. 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 2. Numerous small pulmonary nodules scattered throughout the lungs likely metastatic disease. The nodule in the right middle lobe does abut the visceral pleura and would be amenable to CT-guided biopsy if needed. Jose Barry MD Head CT 06/18/17 1403 Signed Impressions: Service Date/Time: Sunday, June 18, 2017 14:21 - CONCLUSION: 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 No evidence of hemorrhage or edema. No mass or mass effect. Jose Barry MD Chest X-Ray 06/18/17 1403 Signed Impressions: Service Date/Time: Sunday, June 18, 2017 14:19 - CONCLUSION: Soft tissue mass in the AP window and left hilum. Outpatient contrasted chest CT is recommended. Jose Barry MD Procedures None. Other Results Laboratory Tests Test 06/18/17 14:10 06/18/17 14:40 06/19/17 04:45 06/19/17 06:03 Protein Corrected Calcium 12.6 MG/DL Troponin I 0.03 NG/ML B-Hydroxybutyrate 1.00 MMOL/L Prothrombin Time 13.7 SEC Prothromb Time International Ratio 1.2 RATIO Activated Partial Thromboplast Time 22.4 SEC Urine Color YELLOW Urine Turbidity HAZY Urine pH 6.0 Urine Specific [place] 1.014 Urine Protein 100 mg/dL Urine Glucose (UA) 150 mg/dL Urine Ketones NEG mg/dL Urine Occult Blood MOD Urine Nitrite NEG Urine Bilirubin NEG Urine Urobilinogen LESS THAN 2.0 MG/DL Urine Leukocyte Esterase LARGE Urine RBC 70 /hpf Urine WBC /hpf Urine WBC Clumps FEW Urine Squamous Epithelial Cells 8 /hpf Urine Bacteria RARE /hpf Urine Hyaline Casts 2 /lpf Urine Mucus FEW /lpf Microscopic Urinalysis Comment CATH-CULTURE IND Blood Urea Nitrogen 49 MG/DL Creatinine 1.37 MG/DL Random Glucose 132 MG/DL Total Protein 6.2 GM/DL Albumin 3.1 GM/DL Calcium Level 11.5 MG/DL Alkaline Phosphatase 955 U/L Aspartate Amino Transf (AST/SGOT) 212 U/L Alanine Aminotransferase (ALT/SGPT) 144 U/L Total Bilirubin 4.2 MG/DL Direct Bilirubin 3.4 MG/DL Sodium Level 144 MEQ/L Potassium Level 3.7 MEQ/L Chloride Level 110 MEQ/L Carbon Dioxide Level 24.0 MEQ/L Indirect Bilirubin 0.8 MG/DL Test 06/19/17 06:29 06/19/17 10:40 06/20/17 06:50 06/21/17 07:05 Parathyroid Hormone (Intact) 3.2 PG/ML Lactic Acid Level 1.4 mmol/L Myelocytes 4 % Toxic Granulation 1+ Metamyelocytes 1 % Red Cell Morphology Comment NORMAL Test 06/22/17 04:20 06/22/17 15:37 White Blood Count 19.3 TH/MM3 Red Blood Count 3.77 MIL/MM3 Hemoglobin 11.6 GM/DL Hematocrit 34.0 % Mean Corpuscular Volume 90.1 FL Mean Corpuscular Hemoglobin 30.7 PG Mean Corpuscular Hemoglobin Concent 34.0 % Red Cell Distribution Width 14.9 % Platelet Count 55 TH/MM3 Mean Platelet Volume 9.4 FL Neutrophils (%) (Auto) 86.0 % Lymphocytes (%) (Auto) 3.1 % Monocytes (%) (Auto) 10.2 % Eosinophils (%) (Auto) 0.6 % Basophils (%) (Auto) 0.1 % Neutrophils # (Auto) 16.6 TH/MM3 Lymphocytes # (Auto) 0.6 TH/MM3 Monocytes # (Auto) 2.0 TH/MM3 Eosinophils # (Auto) 0.1 TH/MM3 Basophils # (Auto) 0.0 TH/MM3 CBC Comment AUTO DIFF Differential Total Cells Counted 100 Neutrophils % (Manual) 86 % Band Neutrophils % 2 % Lymphocytes % 1 % Monocytes % 9 % Eosinophils % 2 % Neutrophils # (Manual) 17.0 TH/MM3 Nucleated Red Blood Cells 1 /100 WBC Differential Comment FINAL DIFF MANUAL Toxic Vacuolation PRESENT Platelet Estimate LOW Platelet Morphology Comment NORMAL Target Cells 1+ Blood Urea Nitrogen 27 MG/DL Creatinine 0.94 MG/DL Random Glucose 211 MG/DL Total Protein 4.8 GM/DL Albumin 2.0 GM/DL Calcium Level 7.8 MG/DL Alkaline Phosphatase 873 U/L Aspartate Amino Transf (AST/SGOT) 310 U/L Alanine Aminotransferase (ALT/SGPT) 161 U/L Total Bilirubin 6.0 MG/DL Sodium Level 134 MEQ/L Potassium Level 4.3 MEQ/L Chloride Level 104 MEQ/L Carbon Dioxide Level 22.2 MEQ/L Anion Gap 8 MEQ/L Estimat Glomerular Filtration Rate 57 ML/MIN Objective Remarks GENERAL: No acute distress. SKIN: Ecchymosis on arms. HEAD: Atraumatic. Normocephalic. No temporal or scalp tenderness. NECK: Supple, no JVD, no Lymphadenopathy. CARDIOVASCULAR: Regular rate and rhythm without murmurs, gallops, or rubs. RESPIRATORY: Clear to auscultation. GASTROINTESTINAL: Abdomen soft, non-tender, nondistended. MUSCULOSKELETAL: Extremities without clubbing, cyanosis, or edema. NEUROLOGICAL: Awake and alert. Slight left facial droop that's normal for her. Medications and IVs Current Medications Medications (Trade) Dose Ordered Sig/Wil Route Start Time Stop Time Status Last Admin (D50w (Vial) Inj) 50 ml UNSCH PRN IV PUSH 06/18/17 16:30 06/22/17 04:24 (Glucagon Inj) 1 mg UNSCH PRN OTHER 06/18/17 16:30 (NS Flush) 2 ml UNSCH PRN IV FLUSH 06/18/17 16:30 (NS Flush) 2 ml BID IV FLUSH 06/18/17 21:00 (Zofran Inj) 4 mg Q6H PRN IVP 06/18/17 16:30 06/21/17 17:00 (Narcan Inj) 0.4 mg UNSCH PRN IV PUSH 06/18/17 16:30 (Eugenia-Colace) 1 tab BID PO 06/18/17 21:00 06/23/17 20:43 (Milk Of Magnesia Liq) 30 ml Q12H PRN PO 06/18/17 16:30 (Senokot) 17.2 mg Q12H PRN PO 06/18/17 16:30 (Dulcolax Supp) 10 mg DAILY PRN RECTAL 06/18/17 16:30 (Lactulose Liq) 30 ml DAILY PRN PO 06/18/17 16:30 Ceftriaxone Sodium 1000 mg/ Sodium Chloride 100 ml @ 200 mls/hr Q24H IV 06/19/17 12:00 06/23/17 12:17 (Norvasc) 10 mg DAILY PO 06/19/17 09:00 06/23/17 09:38 (Cosopt 2-0.5% Opth Soln) 1 drop BID RIGHT EYE 06/18/17 21:00 06/23/17 20:45 (Pilocar 2% Opth Soln) 1 drop Q6HR RIGHT EYE 06/19/17 00:00 06/24/17 06:13 Patient Own Medication PT OWN MED: (Brimonidine Opth Dr... Q8HR RIGHT EYE 06/18/17 22:00 Future Hold (Heparin Inj) 5,000 units Q12HR SQ 06/18/17 21:00 06/23/17 20:44 Sodium Chloride 1,000 ml @ 84 mls/hr [id number] IV 06/20/17 21:15 06/24/17 00:09 (NovoLOG SUPPLEMENTAL SCALE) 1 ACHS SLIDING SCALE SQ 06/22/17 12:00 06/23/17 17:42 (Tylenol) 650 mg Q4H PRN PO 06/22/17 16:00 06/24/17 05:43 (Pepcid Inj) 10 mg Q12HR IV PUSH 06/23/17 21:00 06/23/17 20:44 A/P Assessment and Plan 81-year-old female who became in with confusion Metabolic encephalopathy Improving. -CT scan the brain shows an old right infarct. re started her General Diet to improve intake. -Consult pole peeling machine operator helper SIRS probable secondary to UTI. -probable her Leukocytosis related to basal pathology, all cultures are negative. Treated. discontinued Ceftriaxone. Multiple pulmonary and liver nodules -Found on CT scan. Also bladder wall thickening, probable Metastatic Disease, patient with right treatment for UTI continue present care and discharge on by mouth antibiotics. Hypercalcemia improved. DM II - discontinued long lasting Insulin, sliding scale continue at this time eating better. Hypertension controlled continue Home medicines. Hyperlipidemia -Since LFTs elevated will hold statin. History CVA -Patient is not on aspirin. She was most likely on Coumadin due to history CVA but unsure. DVT prophylaxis -Heparin renally dose. Code Status DNR. Discharge Planning Discharge to Hospice once bed available. Yoel Mclain MD Jun 24, 2017 09:34
[2017-06-24] MEDS: INSULIN ASPART SUPPLEMENTAL SCALE SQ SCH ×4 (10:25→21:00)
[2017-06-24] MEDS: HEPARIN SODIUM - SQ 10,000 UNITS/ML VIAL SQ SCH ×2 (10:25→20:36)
[2017-06-24] MEDS: DORZOLAMIDE/TIMOLOL OPTH SOLN 10 ML BTL RIGHT EYE SCH ×2 (10:26→20:55)
[2017-06-24] MEDS: FAMOTIDINE 20 MG/2 ML VIAL IV PUSH SCH ×2 (10:27→20:50)
[2017-06-24] MEDS: cefTRIAXone INJ 1,000 MG in SODIUM CHLORIDE 0.9% INJ 100 ML IV SCH (12:05)
[2017-06-25] MEDS ORDERED: HALOPERIDOL LACTATE 5 MG/ML AMP IV PUSH ONE (00:15)
[2017-06-25 01:13] VITALS: BP 159/69; PULSE 115; RESP 20; TEMP 98; O2SAT 96
[2017-06-25 05:30] VITALS: BP 144/63; PULSE 108; RESP 20; TEMP 97.5; O2SAT 98
[2017-06-25 07:37] VITALS: BP 163/65; PULSE 105; RESP 17; TEMP 97.4; O2SAT 95
[2017-06-25] MEDS: INSULIN ASPART SUPPLEMENTAL SCALE SQ SCH ×3 (08:00→16:43)
[2017-06-25] MEDS: SODIUM CHLOR 0.45% 1000 ML INJ 1,000 ML IV SCH (08:30)
[2017-06-25] MEDS: HEPARIN SODIUM - SQ 10,000 UNITS/ML VIAL SQ SCH (08:59)
[2017-06-25] MEDS: SODIUM CHLORIDE 0.9% FLUSH 10 ML FLUSH IV FLUSH SCH (09:00)
[2017-06-25] MEDS: FAMOTIDINE 20 MG/2 ML VIAL IV PUSH SCH (09:00)
[2017-06-25] MEDS: DORZOLAMIDE/TIMOLOL OPTH SOLN 10 ML BTL RIGHT EYE SCH (09:00)
[2017-06-25] MEDS: DOCUSATE SODIUM 50 MG/SENNA 8.6 MG TAB PO SCH (09:05)
[2017-06-25 11:45] VITALS: BP 150/66; PULSE 103; RESP 18; TEMP 97.5; O2SAT 100
--- NOTE | 2017-06-25 14:51 | HHI.PR ---
Subjective Remarks This is a pleasant 81 y/o Female with DM II, Right sided stroke, Hypertension, Hyperlipidemia, Hypoacusis, Ton chronic anticoagulation who presented with confusion. multiple falls, Glaucoma, uses Metformin, admitted on 06/18/17 with Diagnosis of Metabolic Encephalopathy had Hypoglycemia, Hypercalcemia, leukocytosis, dehydration, Chest X ray showed pulmonary mass, Multiple pulmonary and Liver nodules with diagnosis of Metastatic Cancer, followed by child specialist, her Son wants full management, had Echocardiogram yesterday. 06/21: seen in her bedroom, no new issues, discussed with nurse Miss Pope no nausea, vomit or diarrhea. awaiting final by Palliative care for discharge, no signs of infection so far, blood cultures negative in three days. on Ceftriaxone. Leukocytosis. not improving with management no BSI. 06/22: Seen in the room in the presence of Speech therapy, no nausea, vomit or diarrhea, eating mechanical soft diet. PAYROLL MANAGER Miss Stiles discussed with her Son and accepted to transfer to Hospice care later today if possible. 06/23: Seen in her bedroom at this time Oncology in to see patient, discussed with nurse Mr. Joseph and with Simplex Operator awaiting final by Hospice nurse they have a meeting with her son this afternoon. 06/24: discussed with patient in the room, no changes, waiting for Hospice placement, discussed with Simplex Operator and her Son has to pay out of pocket her SNF placement. 06/25: Objective Vital Signs Date Time Temp Pulse Resp B/P (MAP) Pulse Ox O2 Delivery O2 Flow Rate FiO2 06/25/17 11:45 97.5 103 18 150/66 (94) 100 06/25/17 07:37 97.4 105 17 163/65 (97) 95 06/25/17 05:30 97.5 108 20 144/63 (90) 98 06/25/17 01:13 98.0 115 20 159/69 (99) 96 06/24/17 20:25 97.4 109 20 165/63 (97) 95 06/24/17 16:19 97.8 100 18 119/58 (78) 96 I/O 06/24/17 06/24/17 06/24/17 06/25/17 06/25/17 06/25/17 07:00 15:00 23:00 07:00 15:00 23:00 Intake Total 1997 ml 240 ml 3896 ml 480 ml Output Total 1 ml Balance 1996 ml 240 ml 3896 ml 479 ml Intake Oral 240 ml 480 ml IV Total 1997 ml 3896 ml Output Stool Total 1 ml # Voids 2 2 2 3 # Bowel Movements 3 3 1 3 Result Diagram: 06/22/17 0420 06/22/17 1537 Imaging Last Impressions Abdomen/Pelvis CT 06/18/17 1554 Signed Impressions: Service Date/Time: Sunday, June 18, 2017 16:26 - CONCLUSION: Very inhomogeneous liver with what appears to be multiple masses on this unenhanced study. I suspect it is widespread metastatic disease. 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 Jose Barry MD Chest CT 06/18/17 1440 Signed Impressions: Service Date/Time: Sunday, June 18, 2017 16:26 - CONCLUSION: 1. 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 2. Numerous small pulmonary nodules scattered throughout the lungs likely metastatic disease. The nodule in the right middle lobe does abut the visceral pleura and would be amenable to CT-guided biopsy if needed. Jose Barry MD Head CT 06/18/17 1403 Signed Impressions: Service Date/Time: Sunday, June 18, 2017 14:21 - CONCLUSION: 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 No evidence of hemorrhage or edema. No mass or mass effect. Jose Barry MD Chest X-Ray 06/18/17 1403 Signed Impressions: Service Date/Time: Sunday, June 18, 2017 14:19 - CONCLUSION: Soft tissue mass in the AP window and left hilum. Outpatient contrasted chest CT is recommended. Jose Barry MD Procedures None. Other Results Laboratory Tests Test 06/18/17 14:10 06/18/17 14:40 06/19/17 04:45 06/19/17 06:03 Protein Corrected Calcium 12.6 MG/DL Troponin I 0.03 NG/ML B-Hydroxybutyrate 1.00 MMOL/L Prothrombin Time 13.7 SEC Prothromb Time International Ratio 1.2 RATIO Activated Partial Thromboplast Time 22.4 SEC Urine Color YELLOW Urine Turbidity HAZY Urine pH 6.0 Urine Specific [place] 1.014 Urine Protein 100 mg/dL Urine Glucose (UA) 150 mg/dL Urine Ketones NEG mg/dL Urine Occult Blood MOD Urine Nitrite NEG Urine Bilirubin NEG Urine Urobilinogen LESS THAN 2.0 MG/DL Urine Leukocyte Esterase LARGE Urine RBC 70 /hpf Urine WBC /hpf Urine WBC Clumps FEW Urine Squamous Epithelial Cells 8 /hpf Urine Bacteria RARE /hpf Urine Hyaline Casts 2 /lpf Urine Mucus FEW /lpf Microscopic Urinalysis Comment CATH-CULTURE IND Blood Urea Nitrogen 49 MG/DL Creatinine 1.37 MG/DL Random Glucose 132 MG/DL Total Protein 6.2 GM/DL Albumin 3.1 GM/DL Calcium Level 11.5 MG/DL Alkaline Phosphatase 955 U/L Aspartate Amino Transf (AST/SGOT) 212 U/L Alanine Aminotransferase (ALT/SGPT) 144 U/L Total Bilirubin 4.2 MG/DL Direct Bilirubin 3.4 MG/DL Sodium Level 144 MEQ/L Potassium Level 3.7 MEQ/L Chloride Level 110 MEQ/L Carbon Dioxide Level 24.0 MEQ/L Indirect Bilirubin 0.8 MG/DL Test 06/19/17 06:29 06/19/17 10:40 06/20/17 06:50 06/21/17 07:05 Parathyroid Hormone (Intact) 3.2 PG/ML Lactic Acid Level 1.4 mmol/L Myelocytes 4 % Toxic Granulation 1+ Metamyelocytes 1 % Red Cell Morphology Comment NORMAL Test 06/22/17 04:20 06/22/17 15:37 White Blood Count 19.3 TH/MM3 Red Blood Count 3.77 MIL/MM3 Hemoglobin 11.6 GM/DL Hematocrit 34.0 % Mean Corpuscular Volume 90.1 FL Mean Corpuscular Hemoglobin 30.7 PG Mean Corpuscular Hemoglobin Concent 34.0 % Red Cell Distribution Width 14.9 % Platelet Count 55 TH/MM3 Mean Platelet Volume 9.4 FL Neutrophils (%) (Auto) 86.0 % Lymphocytes (%) (Auto) 3.1 % Monocytes (%) (Auto) 10.2 % Eosinophils (%) (Auto) 0.6 % Basophils (%) (Auto) 0.1 % Neutrophils # (Auto) 16.6 TH/MM3 Lymphocytes # (Auto) 0.6 TH/MM3 Monocytes # (Auto) 2.0 TH/MM3 Eosinophils # (Auto) 0.1 TH/MM3 Basophils # (Auto) 0.0 TH/MM3 CBC Comment AUTO DIFF Differential Total Cells Counted 100 Neutrophils % (Manual) 86 % Band Neutrophils % 2 % Lymphocytes % 1 % Monocytes % 9 % Eosinophils % 2 % Neutrophils # (Manual) 17.0 TH/MM3 Nucleated Red Blood Cells 1 /100 WBC Differential Comment FINAL DIFF MANUAL Toxic Vacuolation PRESENT Platelet Estimate LOW Platelet Morphology Comment NORMAL Target Cells 1+ Blood Urea Nitrogen 27 MG/DL Creatinine 0.94 MG/DL Random Glucose 211 MG/DL Total Protein 4.8 GM/DL Albumin 2.0 GM/DL Calcium Level 7.8 MG/DL Alkaline Phosphatase 873 U/L Aspartate Amino Transf (AST/SGOT) 310 U/L Alanine Aminotransferase (ALT/SGPT) 161 U/L Total Bilirubin 6.0 MG/DL Sodium Level 134 MEQ/L Potassium Level 4.3 MEQ/L Chloride Level 104 MEQ/L Carbon Dioxide Level 22.2 MEQ/L Anion Gap 8 MEQ/L Estimat Glomerular Filtration Rate 57 ML/MIN Objective Remarks GENERAL: No acute distress. SKIN: Ecchymosis on arms. HEAD: Atraumatic. Normocephalic. No temporal or scalp tenderness. NECK: Supple, no JVD, no Lymphadenopathy. CARDIOVASCULAR: Regular rate and rhythm without murmurs, gallops, or rubs. RESPIRATORY: Clear to auscultation. GASTROINTESTINAL: Abdomen soft, non-tender, nondistended. MUSCULOSKELETAL: Extremities without clubbing, cyanosis, or edema. NEUROLOGICAL: Awake and alert. Slight left facial droop that's normal for her. Medications and IVs Current Medications Medications (Trade) Dose Ordered Sig/Wil Route Start Time Stop Time Status Last Admin (D50w (Vial) Inj) 50 ml UNSCH PRN IV PUSH 06/18/17 16:30 06/22/17 04:24 (Glucagon Inj) 1 mg UNSCH PRN OTHER 06/18/17 16:30 (NS Flush) 2 ml UNSCH PRN IV FLUSH 06/18/17 16:30 (NS Flush) 2 ml BID IV FLUSH 06/18/17 21:00 (Zofran Inj) 4 mg Q6H PRN IVP 06/18/17 16:30 06/21/17 17:00 (Narcan Inj) 0.4 mg UNSCH PRN IV PUSH 06/18/17 16:30 ([place]ugenia-Colace) 1 tab BID PO 06/18/17 21:00 06/25/17 09:05 (Milk Of Magnesia Liq) 30 ml Q12H PRN PO 06/18/17 16:30 (Senokot) 17.2 mg Q12H PRN PO 06/18/17 16:30 (Dulcolax Supp) 10 mg DAILY PRN RECTAL 06/18/17 16:30 (Lactulose Liq) 30 ml DAILY PRN PO 06/18/17 16:30 Ceftriaxone Sodium 1000 mg/ Sodium Chloride 100 ml @ 200 mls/hr Q24H IV 06/19/17 12:00 06/24/17 12:05 (Norvasc) 10 mg DAILY PO 06/19/17 09:00 06/25/17 09:05 (Cosopt 2-0.5% Opth Soln) 1 drop BID RIGHT EYE 06/18/17 21:00 06/25/17 09:00 (Pilocar 2% Opth Soln) 1 drop Q6HR RIGHT EYE 06/19/17 00:00 06/24/17 20:38 Patient Own Medication PT OWN MED: (Brimonidine Opth Dr... Q8HR RIGHT EYE 06/18/17 22:00 Future Hold (Heparin Inj) 5,000 units Q12HR SQ 06/18/17 21:00 06/24/17 20:36 Sodium Chloride 1,000 ml @ 84 mls/hr [id number] IV 06/20/17 21:15 06/25/17 08:30 (NovoLOG SUPPLEMENTAL SCALE) 1 ACHS SLIDING SCALE SQ 06/22/17 12:00 06/24/17 16:53 (Tylenol) 650 mg Q4H PRN PO 06/22/17 16:00 06/24/17 20:36 (Pepcid Inj) 10 mg Q12HR IV PUSH 06/23/17 21:00 06/25/17 09:00 A/P Assessment and Plan 81-year-old female who became in with confusion Metabolic encephalopathy Improving. -CT scan the brain shows an old right infarct. re started her General Diet to improve intake. -Consult forestry technical officer SIRS probable secondary to UTI. -probable her Leukocytosis related to basal pathology, all cultures are negative. Treated. discontinued Ceftriaxone. Multiple pulmonary and liver nodules -Found on CT scan. Also bladder wall thickening, probable Metastatic Disease, patient with right treatment for UTI continue present care and discharge on by mouth antibiotics. Hypercalcemia improved. DM II - discontinued long lasting Insulin, sliding scale continue at this time eating better. Hypertension controlled continue Home medicines. Hyperlipidemia -Since LFTs elevated will hold statin. History CVA -Patient is not on aspirin. She was most likely on Coumadin due to history CVA but unsure. DVT prophylaxis -Heparin renally dose. Code Status DNR. Discharge Planning Discharge to Hospice once bed available. Yoel Mclain MD Jun 25, 2017 14:51
[2017-06-25 16:05] VITALS: BP 111/58; PULSE 108; RESP 18; TEMP 97.7; O2SAT 97
== END 2017-06-25 18:30 | DRG 71 ==
LOC: NEPC 13:34 → NEDA 16:18 → N05A 17:52
PROVIDERS: ADMIT Internal Medicine; ATTEND Internal Medicine
DX: G93.41 Metabolic encephalopathy (principal); N17.9 Acute kidney failure, unspecified; C78.00 Secondary malignant neoplasm of unspecified lung; E87.0 Hyperosmolality and hypernatremia; C78.7 Secondary malignant neoplasm of liver and intrahepatic bile duct; R64 Cachexia; E87.2 Acidosis; E11.65 Type 2 diabetes mellitus with hyperglycemia; N39.0 Urinary tract infection, site not specified; C80.1 Malignant (primary) neoplasm, unspecified; E86.0 Dehydration; E83.52 Hypercalcemia; R29.810 Facial weakness; R74.8 Abnormal levels of other serum enzymes; Z86.73 Personal history of transient ischemic attack (TIA), and cerebral infarction without residual deficits; R00.0 Tachycardia, unspecified; R29.6 Repeated falls; R79.89 Other specified abnormal findings of blood chemistry; Z79.01 Long term (current) use of anticoagulants; H40.9 Unspecified glaucoma; I10 Essential (primary) hypertension; E78.5 Hyperlipidemia, unspecified; H91.90 Unspecified hearing loss, unspecified ear; R91.8 Other nonspecific abnormal finding of lung field; Z91.19 Patient's noncompliance with other medical treatment and regimen; N32.89 Other specified disorders of bladder; I37.0 Nonrheumatic pulmonary valve stenosis; Z51.5 Encounter for palliative care; H55.00 Unspecified nystagmus; Z66 Do not resuscitate; E83.51 Hypocalcemia
CPT/HCPCS: 70450; 71010; 71250; 74176; 80048; 80053; 80076; 81001; 82010; 82947; 82948; 83605; 83970; 84484; 85007; 85027; 85610; 85730; 87040; 87086; 93005; 93306; 99285; J0630; J0692; J0696; J1630; J1644; J1815; J2405; J2920; J7030